=== PATIENT | female | born 1975 | race African-American/Black ===

== ENCOUNTER 2019-07-18 09:32 | Emergency (ER) | payer BC, OTHER ==
[~2019-07-18] VITALS: Ht 165.1 cm; Wt 111.4 kg
[2019-07-18 09:37] VITALS: BP 215/130
[2019-07-18] MEDS ORDERED: KETOROLAC 60 MG/2 ML VIAL IM ONE (10:05)
--- NOTE | 2019-07-18 10:17 | NUR ---
TORADOL SHOT GIVEN PER MD ORDER.
--- NOTE | 2019-07-18 12:03 | NUR ---
notified of pt's current b/p 206/115 hr 73 spo2 100% ra---no intervention required as pt has meds at home and currently asymptomaic as per
[2019-07-18 12:07] VITALS: BP 168/89
--- NOTE | 2019-07-18 12:08 | NUR ---
Patient discharged with v/s stable. Written and verbal after care instructions given and explained. Patient alert, oriented and verbalized understanding of instructions. Ambulatory with to home. All questions addressed prior to discharge. ID band removed. Patient advised to follow up with PMD. Rx of MOTRIN AND NORCO given. Patient educated on indication of medication including possible reaction and side effects. Opportunity to ask questions provided and answered.
== END 2019-07-18 12:06 | disposition home or self-care (01) ==
LOC: MED 09:32
DX: S13.4XXA Sprain of ligaments of cervical spine, initial encounter (principal); M25.511 Pain in right shoulder; M54.89 Other dorsalgia; I10 Essential (primary) hypertension; V89.2XXA Person injured in unspecified motor-vehicle accident, traffic, initial encounter; Y93.89 Activity, other specified; Y92.410 Unspecified street and highway as the place of occurrence of the external cause; Y99.8 Other external cause status
CPT/HCPCS: 81002; 81025; 96372; 99283; J1885; 99282

== ENCOUNTER 2019-12-25 12:25 | Inpatient (IN) | payer BC, OTHER ==
[~2019-12-25] VITALS: Ht 162.6 cm; Wt 120.2 kg
[2019-12-25 12:29] VITALS: BP 147/120
--- NOTE | 2019-12-25 12:55 | NUR ---
c/o recurring sob with any activity, pitting edema ble, ---states she has seen her pmd and urgent care twice ---no cxr or lab work--admits finished rx
--- NOTE | 2019-12-25 13:07 | NUR ---
influenza swab collected handed to lab
--- NOTE | 2019-12-25 13:13 | NUR ---
Dr. Brown is evaluating the patient at bedside.
[2019-12-25 13:24] LABS: BASOPHILS % (AUTO) 0.7 % (0.0-2.0); EOSINOPHILS # (AUTO) 0.1 K/uL (0-0.4); EOSINOPHILS % (AUTO) 1.8 % (0.0-4.0); HEMATOCRIT 24.4 % (36-48); HEMOGLOBIN 8.4 g/dL (12.0-16.0); LYMPHOCYTES # (AUTO) 0.7 K/uL (2.5-16.5); LYMPHOCYTES % (AUTO) 11.5 % (20.5-51.1); MEAN CORPUSCULAR HEMOGLOBIN 33 pg (27-31); MEAN CORPUSCULAR HGB CONC 34 g/dL (33-37); MEAN CORPUSCULAR VOLUME 96.5 fL (80-94); MONOCYTES # (AUTO) 0.3 K/uL (0.8-1.0); NEUTROPHILS # (AUTO) 5.2 K/uL (1.8-7.7); PLATELET COUNT (AUTO) 82 K/uL (140-450); RED BLOOD CELL COUNT(AUTO) 2.53 MIL/uL (4.20-5.40); RED CELL DISTRIBUTION WIDTH 17.4 % (11.6-13.7); WHITE BLOOD COUNT (AUTO) 6.5 K/uL (4.8-10.8)
--- NOTE | 2019-12-25 13:24 | NUR ---
BP ELEVATED AT 197/103, DR. ANDRADE MADE AWARE
[2019-12-25] MEDS ORDERED: hydrALAZINE 20 MG/ML VIAL IVP ONE (13:25)
--- NOTE | 2019-12-25 13:40 | NUR ---
US tech at bedside for exam.
[2019-12-25 13:52] LABS: ALBUMIN 2.9 g/dL (3.4-5.0); ANION GAP 18.8 (8-16); CARBON DIOXIDE 21.5 mmol/L (21-32); POTASSIUM 4.3 mmol/L (3.5-5.1); TOTAL BILIRUBIN 0.8 mg/dL (0.0-1.0)
[2019-12-25 13:56] LABS: CREATININE 10.8 mg/dL (0.6-1.3)
--- NOTE | 2019-12-25 15:06 | NUR ---
pt to ct via wc
--- NOTE | 2019-12-25 15:20 | NUR ---
PT ARRIVED BACK ON THE UNIT. ALL SAFETY MEASURES ARE IN PLACE WILL CONTINUE TO MONITOR
[2019-12-25] MEDS ORDERED: ONDANSETRON 4 MG/2 ML VIAL IVP ONE (15:25)
--- NOTE | 2019-12-25 15:25 | NUR ---
PT RETURNED FROM CT DUE TO INABILITY TO TOLERATE WHILE LAYING DOWN. PT BECAME NASUEOUS AND BEGAN TO VOMIT. WILL MEDICATE WITH ZOFRAN AND ATTEMPT CT AGAIN
[2019-12-25] MEDS ORDERED: ATOR20TA PO (15:50)
[2019-12-25] MEDS ORDERED: ALBU0.0912 IH (15:50)
[2019-12-25] MEDS ORDERED: CLON0.2T43 PO (15:50)
[2019-12-25] MEDS ORDERED: ASPI-1205 PO (15:50)
[2019-12-25] MEDS ORDERED: CETI-120 PO (15:50)
[2019-12-25] MEDS ORDERED: LABE300T5 PO (15:50)
[2019-12-25] MEDS ORDERED: FLO44 IH (15:50)
--- NOTE | 2019-12-25 16:15 | NUR ---
Patient will be admitted to care of DR. BARGER. Admited to TELEMETRY. Will go to room 106A. Belongings list completed. Report to ANNE-MARIE Karimi.
--- NOTE | 2019-12-25 16:20 | NUR ---
PT ARRIVED ON THE UNIT AT 1610 INTRODUCED MYSELF ORIENTED PT TO THE UNIT AND TO HER ROOM. REVIEWED ADMISSION QUESTIONS. PERFORMED ASSESSMENT. PT STATED SHE HAD NO OPEN WOUNDS.
[2019-12-25] MEDS ORDERED: DOCUSATE SODIUM 100 MG GELCAP PO PRN (16:40)
[2019-12-25] MEDS ORDERED: ACETAMINOPHEN 325 MG TAB PO PRN (16:40)
[2019-12-25] MEDS ORDERED: LORazepam 2 MG/ML VIAL IM/IVP PRN (16:40)
--- NOTE | 2019-12-25 16:50 | NUR ---
PT TAKEN OFF THE UNIT TO RADIOLOGY FOR SCREENING.
[2019-12-25] MEDS ORDERED: AZITHROMYCIN 500 MG in DEXTROSE 5% 250 ML IV ONE (17:10)
[2019-12-25 17:28] VITALS: BP 160/81
[2019-12-25] MEDS ORDERED: hePARIN / DEXT 5% PREMIX 250 ML IV SCH (17:35)
[2019-12-25] MEDS ORDERED: HEPARIN PER PHARMACY MC PRN (17:35)
[2019-12-25 17:47] LABS: AMYLASE 87 U/L (25-115); CHOL/HDL RATIO 2.1 (1-4.5); FREE T4 (FREE THYROXINE) 0.96 ng/dL (0.76-1.46); HDL CHOLESTEROL 45 mg/dL (40-60); LACTATE DEHYDROGENASE 519 U/L (81-234); LDL (CALC) 38 mg/dL (60-100); LIPASE 214 U/L (73-393); MAGNESIUM 1.9 mg/dL (1.8-2.4); PHOSPHORUS 7.7 mg/dL (2.5-4.9); THYROID STIMULATING HORMONE 3.65 uIU/mL (0.34-3.74); TRIGLYCERIDES 59 mg/dL (30-150)
[2019-12-25] MEDS ORDERED: ALBUTEROL SULFATE/IPRATROPIU 3 ML SOL IH PRN (18:15)
[2019-12-25 18:23] LABS: APPEARANCE,URINE HAZY (CLEAR); BILIRUBIN,URINE NEGATIVE (NEGATIVE); BLOOD, URINE 3+ (NEGATIVE); COLOR,URINE YELLOW (YELLOW); PH,URINE 5.5 (5.0-9.0); UGLUCOSE NEGATIVE (NEGATIVE)
[2019-12-25 18:24] LABS: LEUKOCYTE ESTERASE ,URINE NEGATIVE (NEGATIVE); NITRITE, URINE NEGATIVE (NEGATIVE)
[2019-12-25 18:39] LABS: RBC,URINE 80-100 /HPF (0-5); WBC,URINE 0-5 /HPF (0-5)
[2019-12-25 18:41] LABS: BARBITURATE, URINE NEGATIVE ng/ml (NEG <=200); BENZODIAZEPINE, URINE NEGATIVE ng/mL (NEG <=200); CANNABINOID, URINE NEGATIVE ng/mL (NEG <=50); COCAINE, URINE NEGATIVE ng/mL (NEG <=300); OPIATE, URINE NEGATIVE ng/mL (NEG <=2000); PHENCYCLIDINE SCREEN,URINE NEGATIVE ng/mL (NEG <=25)
--- NOTE | 2019-12-25 18:43 | NUR ---
ATTEMPTED PLACING LOZANO CATH TWICE. UNABLE TO HAVE SUCCESS PLACING LOZANO CATH. WILL HAVE TO ENDORSE TO PM RN TO HAVE HELP WHEN PLACING PT IS LARGE.
[2019-12-25] MEDS ORDERED: cefTRIAXone 1,000 MG VIAL ONE (18:48)
[2019-12-25] MEDS: FUROSEMIDE 40 MG/4 ML VIAL IVP SCH (19:05)
[2019-12-25] MEDS ORDERED: ALBUTEROL SULFATE/IPRATROPIU 3 ML SOL IH ONE (19:14)
[2019-12-25 19:18] LABS: PROTHROMBIN TIME 10.3 secs (10.8-13.4)
--- NOTE | 2019-12-25 19:30 | NUR ---
ENDORSED PT TO PM RN PT AWAKE IN BED PT APPEARS STABLE AND IN NO APPARENT DISTRESS. ALL SAFETY MEASURES ARE IN PLACE PT IS AT BEDSIDE. ENDORSED LOZANO CATH
--- NOTE | 2019-12-25 19:37 | NUR ---
RECEIVED PATIENT ON ROOM AIR, PULSE OX SAT 99%. SCHEDULED BREATHING TREATMENT ADMINISTERED. TOLERATED TX WELL WITHOUT ADVERSE SIDE EFFECTS. INCENTIVE SPIROMETER EDUCATION DONE. PT PERFORMED RETURN DEMONSTRATION WITH GOOD EFFORT. WILL CONTINUE TO ENCOURAGE EQUIPMENT USAGE. PT STATES NO COUGH OR PHLEGM PRODUCTION AT THIS TIME- UNABLE TO OBTAIN SPUTUM SAMPLE; SPUTUM CUP LEFT AT BEDSIDE, SPUTUM EXPECTORATION INSTRUCTIONS GIVEN, PT AWARE. PT MADE AWARE OF ORDERED MEDICATION FREQUENCY AND INSTRUCTED TO CALL NEEDED FOR SOB. NO ACUTE RESPIRATORY DISTRESS NOTED AT THIS TIME. WILL CONTINUE TO MONITOR.
--- NOTE | 2019-12-25 19:39 | NUR ---
RECEIVED PT FROM OSCAR RN PT MORBID OBESITY, AAOX4 USING BSC IV ON LEFT AC INFUSING WELL ROVEPHIN, , , PT HAS SOB TO LITTLE EXERTION, ON TELMETRY ST , RELTIVES AT BE SIDE INITIAL ASSESSMENT DONE
[2019-12-25] MEDS ORDERED: AZITHROMYCIN 500 MG INJ VIAL IV ONE (19:47)
[2019-12-25 20:00] VITALS: BP 187/84
[2019-12-25] MEDS: cloNIDine 0.1 MG TAB PO SCH (20:10)
[2019-12-25] MEDS: LABETALOL 100 MG TAB PO SCH (20:11)
--- NOTE | 2019-12-25 20:30 | NUR ---
DR ROSAS IS HERE AND SEE THE PT
[2019-12-25] MEDS: ONDANSETRON 4 MG/2 ML VIAL IM/IVP PRN (23:18)
[2019-12-25] MEDS: hydrALAZINE 20 MG/ML VIAL IVP PRN (23:21)
[2019-12-26] VITALS: BP 197/117
--- NOTE | 2019-12-26 | NUR ---
PT HAS BEEN MONITORING CLOSE FOR HIGH BP ON TELMETRY SR AND AFTER PAIN MEDIC GIVEN PT SLEEPS WELL
[2019-12-26] MEDS: MORPHINE SULFATE 2 MG/ML SYR IVP PRN ×2 (00:51→15:58)
--- NOTE | 2019-12-26 02:16 | NUR ---
AFTER PAIN MEDIC GIVEN PT IS SLEEPING QUIET
[2019-12-26 04:00] VITALS: BP 194/108
--- NOTE | 2019-12-26 04:00 | NUR ---
SPONGE BATH GIVEN LINEN CHANGED PT ON TELE SR MONITORING HIGH BP AND GIVING PRN MEDIC ORDER TO LOWER BP
[2019-12-26] MEDS: hydrALAZINE 20 MG/ML VIAL IVP PRN ×3 (04:35→17:51)
[2019-12-26] MEDS: ONDANSETRON 4 MG/2 ML VIAL IM/IVP PRN (06:28)
--- NOTE | 2019-12-26 06:48 | NUR ---
ON TELE SR AND MEDIC IS GIVEN ORDER FOR NAUSEAS PT WILLBE ENDORSED TO DAYSHIFT NURSE FOR CONTINUE OF CARE
[2019-12-26 06:54] LABS: ANION GAP 21.6 (8-16); CARBON DIOXIDE 16.4 mmol/L (21-32)
[2019-12-26 07:01] LABS: MAGNESIUM 2.1 mg/dL (1.8-2.4); PHOSPHORUS 8.2 mg/dL (2.5-4.9)
[2019-12-26 07:06] LABS: BASOPHILS # (AUTO) 0.1 K/uL (0.00-0.22); BASOPHILS % (AUTO) 0.7 % (0.0-2.0); EOSINOPHILS # (AUTO) 0.1 K/uL (0-0.4); EOSINOPHILS % (AUTO) 1.3 % (0.0-4.0); LYMPHOCYTES # (AUTO) 1.2 K/uL (2.5-16.5); MEAN CORPUSCULAR HEMOGLOBIN 34 pg (27-31); MEAN CORPUSCULAR HGB CONC 35 g/dL (33-37); MEAN CORPUSCULAR VOLUME 97.2 fL (80-94); MONOCYTES # (AUTO) 0.4 K/uL (0.8-1.0); MONOCYTES % (AUTO) 4.7 % (1.7-9.3); NEUTROPHILS # (AUTO) 6.4 K/uL (1.8-7.7); NEUTROPHILS % (AUTO) 78.3 % (42.2-75.2); PLATELET COUNT (AUTO) 99 K/uL (140-450); RED BLOOD CELL COUNT(AUTO) 2.67 MIL/uL (4.20-5.40); WHITE BLOOD COUNT (AUTO) 8.2 K/uL (4.8-10.8)
--- NOTE | 2019-12-26 07:30 | NUR ---
RECEIVED BEDSIDE REPORT FROM NIGHTSHIFT NURSE. PT RESTING IN BED. ABLE TO MAKE NEEDS KNOWN. RESPIRATIONS EVEN AND UNLABORED WITH NO SOB OR RESPIRATORY DISTRESS. SKIN WARM AND DRY TO TOUCH. IV SITE IN LAC 2OG IS CLEAN, DRY, AND INTACT. SAFETY MEASURES IN PLACE. WILL CONTINUE TO MONITOR.
--- NOTE | 2019-12-26 07:32 | NUR ---
RECEIVED CRITICAL RESULT FROM LAB. CREATININE IS 10.5 AND BUN IS 129. RESIDENT MADE AWARE. SAFETY MEASURES IN PLACE.
[2019-12-26 07:39] LABS: CREATININE 10.7 mg/dL (0.6-1.3)
[2019-12-26] MEDS: ALBUTEROL SULFATE/IPRATROPIU 3 ML SOL IH SCH ×3 (07:41→20:28)
[2019-12-26 08:00] VITALS: BP 197/87
--- NOTE | 2019-12-26 08:27 | NUR ---
RECEIVED CRITICAL RESULT FROM LAB. TROPONIN IS 0.223. RESIDENT MADE AWARE. SAFETY MEASURES IN PLACE.
--- NOTE | 2019-12-26 08:56 | NUR ---
PATIENT HAS BEEN SCREENED AND CATEGORIZED HIGH NUTRITION RISK. PATIENT WILL BE SEEN WITHIN 1-2 DAYS OF ADMISSION. 12/26/19-12/27/[address]
[2019-12-26] MEDS: FUROSEMIDE 40 MG/4 ML VIAL IVP SCH ×3 (09:00→17:00)
[2019-12-26] MEDS: LABETALOL 100 MG TAB PO SCH ×2 (09:02→22:18)
[2019-12-26] MEDS: cloNIDine 0.1 MG TAB PO SCH ×2 (09:03→22:19)
--- NOTE | 2019-12-26 09:03 | NUR ---
ADMINISTERED SCHED MED PRESCRIBED PER MD ORDER. PT TOLERATED WELL. MEDICATION EDUCATION PERFORMED. PT VERBALIZED UNDERSTANDING. LASIX HELD DUE TO KIDNEY SCAN TODAY. RESIDENT IS AWARE. SAFETY MEASURES IN PLACE. WILL CONTINUE TO MONITOR
[2019-12-26] MEDS: CALCIUM ACETATE 667 MG TAB PO SCH ×3 (09:04→17:12)
[2019-12-26] MEDS ORDERED: amLODIPine 5 MG TAB PO SCH (10:00)
--- NOTE | 2019-12-26 10:57 | NUR ---
DISCHARGE PLANNING: CONTACTED [facility] AT [phone], ABLE TO SPEAK TO NELIDA (ANSWERING SERVICE), TRANSFERRED ME TO DEPARTMENT. ABLE TO SPEAK TO REGINALD, SHE STATED THE CM IN CHARGE IS MARIE WARREN [id number]. GOT TRANSFERRED NO ANSWER, ANSWERED BY REGINALD AGAIN. STATING THE SINCE THE PATIENT IS [facility]/[place]ONDO THE CM IS CAITLYN [phone]. PER CM CAITLYN (OUTSIDE CM), IF PATIENT IS STABLE TO BE TRANSFERRED TO CONTRACTED FACILITY WHICH IS [facility]. SHE ALSO REQUESTED TO SEND CLINICALS TO [phone], CLINICALS SENT. WILL FOLLOW UP. Addendum: 12/26/19 at 1104 by Nicole Davila CM PER DR. JORDAN PATIENT IS NOT STABLE FOR TRANSFER YET PENDING NEPHRO'S RECOMMENDATION. Addendum: 12/26/19 at 1402 by Nicole Davila CM CONTACTED DORIE CAITLYN OF [facility] AT [phone], SHE STATED WHEN THEY RAN THE ELIGIBILITY IT SHOWED THAT THIS IS NOT THEIR PATIENT AND BELONGS TO [facility] AND THE CM IN CHARGE IS JUDITH PAVON AT [phone]. CONTACTED THE PROVIDED NUMBER, NO ANSWER. LEFT MESSAGE. Addendum: 12/26/19 at 5160 by Nicole Davila CM RECEIVED A FAX FROM DORIE WONG WITH TRACKING NUMBER [id number] AND CM IN CHARGE IS BAHMAN MOLINA AT [phone]. RALPH COORDINATOR MADE AWARE. Addendum: 12/27/19 at 1033 by Nicole Davila CM CONTACTED DORIE MOLINA OF [facility] AT [phone], IF THE PATIENT NEEDS TO BE TRANSFERRED OUT TO A CONTRACTED FACILITY ONCE STABLE. SHE STATED NO NEED TO SINCE WE ARE CONTRACTED WITH THEM AND THEIR HOSPITALIST IS DR. Gume BARGER. Addendum: 12/27/19 at 1136 by Nicole Davila RECEIVED A CALL FROM PRIMARY RN DAIN, STATING THAT DR JORGENSEN IS REQUESTING TO SET UP OUT PATIENT DIALYSIS FOR THIS PATIENT AT [facility]. CONTACTED DORIE MOLINA OF [facility], SHE STATED THEY ARE THE ONE WHO IS DELEGATED TO PROVIDE AUTH FOR OUT PATIENT DIALYSIS AND THEY ARE NOT CONTRACTED WITH [facility], ONLY WITH [facility]. DR JORGENSEN MADE AWARE AT [phone], HE STATED HE WILL CHECK WITH THEIR OFFICE AND WILL CALL ME BACK. Addendum: 12/28/19 at 1500 by Ivette Mosley ALEIDA/DORIE met with pt to follow-up in regards to outpatient dialysis; present. Pt a&o x4, able to engage in the conversation; pt's mood and affect were congruent with the situation. 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 Pt stated she's planning on filing short-term disability. Pt requesting outpatient dialysis to start between 9-11am as she would have to pickle maker her children from school and/or will only be available during this time. Sw informed patient we would try to accommodate her request however it's based on facility's availability. Pt and understood and are agreeable. KAYLAH Farrell/DORIE Ext [phone] Addendum: 12/28/19 at 1555 by Nicole Davila CM [id number]: SPOKE TO DR JORGENSEN REGARDING OUT PATIENT DIALYSIS. HE STATED HE DISCUSSED THE CASE (INSURANCE) WITH DR. COLEMAN AND WILL TAKE THE PATIENT IN FOR NOW AND WORRY ABOUT THE INSURANCE LATER. PER HIS PROGRESS NOTES PATIENT IS ACCEPTED AT [facility] [place]. CONTACTED [facility] [place] AT [phone], SPOKE TO JESSICA. HE STATED HE WILL FIND OUT. GOT TRANSFERRED TO [facility], HE STATED TO CALL IN BIT AND LOOK FOR JORDON (INTAKE). Addendum: 12/28/19 at 1557 by Nicole Davila CM CONTACTED [facility] [place], ABLE TO SPEAK WITH JORDON. SHE CONFIRMED THAT PATIENT HAS BEEN ACCEPTED AND CHAIR TIME WILL BE M-W-F AT [phone]. I INFORMED HER THAT THE PATIENT IS REQUESTING A MORNING SESSION, SHE STATED THEIR MORNING SESSION ARE PRETTY MUCH BOOKED UP. I ALSO INFORMED HER THAT THEY ARE NOT CONTRACTED WITH THE INSURANCE AND DR JORGENSEN IS AWARE OF THIS. Addendum: 12/28/19 at 1639 by Nicole Davila CM MET WITH THE PATIENT AGAIN TO DISCUSS OUT PATIENT CHAIR TIME AND IS IN AGREEMENT. PRIMARY RN AND CHARGE NURSE MADE AWARE. Addendum: 12/29/19 at 1023 by Nicole Davila CM PER CHARGE NURSE (DURING BED HUDDLE) PATIENT IS NOT ABLE TO COMPLY WITH THE CHAIR TIME DUE TO NO ONE WILL BE TAKING HER THOSE DAYS. MET WITH THE PATIENT AND HER AT THE BEDSIDE TO DISCUSS HER CONCERNS. SHE STATED PREFERABLY T-TH-SAT BETWEEN 11-2 PM. I INFORMED HER I WILL TRY TO SET IT UP THE WAY SHE WANTED IT HOWEVER I CAN NOT GUARANTEE HER REQUEST THAT IT WILL DEPEND ON THE AVAILABILITY OF THE DIALYSIS CENTER. BOTH PATIENT AND HER AGREED. Addendum: 12/29/19 at 1534 by Nicole Davila CM RECEIVED A CALL FROM BAHMAN MOLINA OF [facility] [employer] [facility], STATING THAT SHE IS TRYING TO GET A CHAIR TIME FOR THE PATIENT TO [facility] [place]. SHE PROVIDED ME THE FAX NUMBER [phone] TO SEND CLINICALS. SHE ALSO STATED THAT DR. JORGENSEN IS NOT CONTRACTED WITH THEM EITHER. DR. JORGENSEN MADE AWARE. HE STATED, THEY CAN TAKE THE PATIENT IN TEMPORARILY AND HE DISCUSSED IT WITH THE PATIENT AND PATIENT IS WILLING TO CHANGE MEDICAL GROUP IN THE FUTURE. MET WITH THE PATIENT AT THE BEDSIDE AND CONFIRMED THAT SHE DISCUSSED THIS WITH DR. JORGENSEN. Addendum: 12/29/19 at 1702 by Nicole Davila CONTACTED [facility] AT [phone] TO FOLLOW UP ON THE CHAIR TIME, ABLE TO SPEAK TO JOHANNA, SHE CONFIRMED THAT THEY HAVE RECEIVED THE FAX HOWEVER THE CASE IS NOT ASSIGNED YET AND SOMEONE WILL BE CALLING ME TO FOLLOW UP. RECEIVED A CALL FROM LIVIA FROM [facility], SHE STATED SHE IS TRYING TO GET A CHAIR TIME WITH THEIR ORIENT CLINIC. SHE STATED SHE WILL CALL ME BACK ONCE SET UP. CONTACTED DORIE RUGGIERO OF [facility] AND MADE HER AWARE THAT PATIENT NEEDS TO STAY, SINCE CHAIR TIME HAS NOT BEEN SET UP YET AND JUST MAKING SURE THAT THE STAY WILL NOT BE DENIED BEACUASE OF THAT. SHE STATED SHE WILL DISCUSS IT WITH HER DIRECTOR. RECEIVED A CALL FROM LIVIA OF [facility], STATING THAT SHE GOT THE CHAIR TIME AT [facility] FOR [facility]U AT 0500. I INFORMED HER THAT I HAVE TO DISCUSS IT WITH THE PATIENT AND WILL GIVE HER A CALL BACK. MET WITH THE PATIENT AT THE BEDSIDE TO DISCUSS CHAIR TIME AND PATIENT IS IN AGREEMENT. LIVIA OF [facility] MADE AWARE. DR. JORGENSEN AND DR. JORDAN MADE AWARE. PRIMARY RN DORIS MADE AWARE WELL. Addendum: 12/30/19 at 1451 by Nicole Davila CM LATE ENTRY: RECEIVED A FAX FROM [employer] OF HARD COPY OF THE CHAIR TIME. PATIENT MADE AWARE, ABLE TO VERBALIZE UNDERSTANDING. I ALSO INFORMED HER THAT SHE HAS TO GO TO THE CLINIC ON THURSDAY TO FILL OUT SOME PAPER WORKS AND BE ON HER APPOINTMENT 20 MINUTES EARLY, ABLE TO VERBALIZE UNDERSTANDING.
--- NOTE | 2019-12-26 11:55 | NUR ---
ADMINISTERED SCHED MED PRESCRIBED PER MD ORDER. PT TOLERATED WELL. MEDICATION EDUCATION PERFORMED. PT VERBALIZED UNDERSTANDING. SAFETY MEASURES IN PLACE. WILL CONTINUE TO MONITOR
[2019-12-26 12:00] VITALS: BP 167/84
[2019-12-26] MEDS: NIFEdipine 60 MG TABER PO SCH (12:27)
--- NOTE | 2019-12-26 13:40 | NUR ---
Health Education Assistant Note: Basic Screen: Yes High Risk DC Screen [place]: VERONIKA CLAUDIO [place] Relationship: SON Pre-Admission Living Arrangements: Lives with Other Prior ADL Independent Current Home Health Name/Tel: N/A Current DME/02 Name/Tel: N/A Current Hospice Name/Tel: N/A Current Dialysis Name/Tel: STATED SHE WILL BEGIN DIALYSIS Healthcare Decision Maker: Patient Advance Directive No Physician Orders for Life Sustaining Treatment Form No Patient/Family Have Educational Needs No Information Taught: Advance Directive Person Taught: Patient Teaching Tools: Verbal Factors Affecting Learning: None Participation Level: Refused Evaluation: Verbalizes Understanding Needs Additional Education: No Discipline: Case Mgt/Social Svcs Tentative Discharge Plan/Destination: No Needs Identified Will require assistance post discharge: No Referred to Testing Tech: No Tentative Discharge Plan Summary: Patient is a 44-year-old female admitted for acute renal failure. Patient has PMHX of asthma and HTN. Patient was admitted from home where she lives with her , children, and mother. SW met with patient at bedside to verify demographics. Patient reported no history of mental health and no history of substance abuse. Patient's tentative discharge plan is to return home. No further needs identified. Signature: DONYA Navarro Date: Dec 26, 2019 Time: 13:39
--- NOTE | 2019-12-26 13:45 | NUR ---
PT RESTING IN BED. ABLE TO MAKE NEEDS KNOWN. RESPIRATIONS EVEN AND UNLABORED WITH NO SOB OR RESPIRATORY DISTRESS. SKIN WARM AND DRY TO TOUCH. SAFETY MEASURES IN PLACE. WILL CONTINUE TO MONITOR.
--- NOTE | 2019-12-26 14:30 | NUR ---
PT SIGNED CONSENT FOR BOTH QUITON CATHETER PLACEMENT AND HD. SAFETY MEASURES IN PLACE. WILL CONTINUE TO MONITOR
--- NOTE | 2019-12-26 15:25 | NUR ---
NICOLLE CATH IS PLACED ON PT'S RIGHT CHEST. PT TOLERATED WELL. SAFETY MEASURES IN PLACE. WILL CONTINUE TO MONITOR.
--- NOTE | 2019-12-26 15:58 | NUR ---
PT CALLED AND COMPLAINED OF SEVERE PAIN. PRN PAIN MEDICATION ADMINISTERED PRESCRIBED PER MD ORDER. PT TOLERATED WELL. MEDICATION EDUCATION PERFORMED. PT VERBALIZED UNDERSTANDING. SAFETY MEASURES IN PLACE. WILL CONTINUE TO MONITOR.
[2019-12-26 16:00] VITALS: BP 183/96
--- NOTE | 2019-12-26 17:12 | NUR ---
ADMINISTERED SCHED MED PRESCRIBED PER MD ORDER. PT TOLERATED WELL. MEDICATION EDUCATION PERFORMED. PT VERBALIZED UNDERSTANDING. SAFETY MEASURES IN PLACE. WILL CONTINUE TO MONITOR
[2019-12-26] MEDS: AZITHROMYCIN 250 MG in DEXTROSE 5% 250 ML IV SCH (18:04)
--- NOTE | 2019-12-26 19:08 | NUR ---
RECIEVED PT AAOX4 , NID , SL INTACT AND PATENT , W/ NICOLLE ON THE R NECK . POC DISCUSSED AND VERBALIZE UNDERSTANDING , ON SAFETY PRECAUTION PROTOCOL- CALL LIGHT WITHIN REACH .WILL CONT. TO MONITOR.
--- NOTE | 2019-12-26 19:08 | NUR ---
ENDORSED AT BEDSIDE WITH NIGHTSHIFT NURSE. PT RESTING IN BED. ABLE TO MAKE NEEDS KNOWN. RESPIRATIONS EVEN AND UNLABORED WITH NO SOB OR RESPIRATORY DISTRESS. SKIN WARM AND DRY TO TOUCH. SAFETY MEASURES IN PLACE. PT IS STABLE
[2019-12-26 20:00] VITALS: BP 160/90
[2019-12-26] MEDS ORDERED: MORPHINE SULFATE 2 MG/ML SYR IVP PRN (20:00)
--- NOTE | 2019-12-26 20:33 | NUR ---
FOR HD TONIGHT AND JANESSA . ORDERED BY AREN - INFORM HEMODIALYSIS NURSE.
--- NOTE | 2019-12-26 23:30 | NUR ---
HD BEGINS - WILL CONT. TO MONITOR , CALL LIGHT WITHIN REACH.
[2019-12-27] VITALS (7 sets, daily range): BP systolic 127–155; BP diastolic 65–90
[2019-12-27] MEDS: HYDROcodone/APAP 5/325 MG 1 TAB TAB PO PRN ×3 (02:12→17:54)
--- NOTE | 2019-12-27 02:45 | NUR ---
RECEIVED PATIENT FROM PILOT POINT FOR CONTINUITY OF CARE, PT IS RESTING QUIETLY.
--- NOTE | 2019-12-27 02:45 | NUR ---
ENDORSED TO CHARGE NURSE FOR CONT. OF CARE - PT - STABLE - HD DONE - TOLERATED WELL.
--- NOTE | 2019-12-27 04:00 | NUR ---
AWAKE, V/S TAKEN ,NO COMPLAINTS.
[2019-12-27] MEDS: ALBUTEROL SULFATE/IPRATROPIU 3 ML SOL IH SCH ×3 (06:21→20:03)
--- NOTE | 2019-12-27 06:27 | NUR ---
SLEEPING QUIETLY, NO SIGN OF DISTRESS.
--- NOTE | 2019-12-27 07:25 | NUR ---
RECEIVED BEDSIDE REPORT FROM NIGHTSHIFT NURSE. PT RESTING IN BED. ABLE TO MAKE NEEDS KNOWN. RESPIRATIONS EVEN AND UNLABORED WITH NO SOB OR RESPIRATORY DISTRESS. SKIN WARM AND DRY TO TOUCH. SAFETY MEASURES IN PLACE. WILL CONTINUE TO MONITOR.
[2019-12-27 07:35] LABS: BASOPHILS % (AUTO) 0.3 % (0.0-2.0); EOSINOPHILS # (AUTO) 0.1 K/uL (0-0.4); HEMOGLOBIN 8.4 g/dL (12.0-16.0); LYMPHOCYTES # (AUTO) 0.7 K/uL (2.5-16.5); LYMPHOCYTES % (AUTO) 7.2 % (20.5-51.1); MEAN CORPUSCULAR HEMOGLOBIN 34 pg (27-31); MEAN CORPUSCULAR HGB CONC 35 g/dL (33-37); MEAN CORPUSCULAR VOLUME 96.8 fL (80-94); MONOCYTES # (AUTO) 0.6 K/uL (0.8-1.0); MONOCYTES % (AUTO) 6.1 % (1.7-9.3); NEUTROPHILS # (AUTO) 8.2 K/uL (1.8-7.7); NEUTROPHILS % (AUTO) 85.4 % (42.2-75.2); PLATELET COUNT (AUTO) 94 K/uL (140-450); RED BLOOD CELL COUNT(AUTO) 2.48 MIL/uL (4.20-5.40); RED CELL DISTRIBUTION WIDTH 17.8 % (11.6-13.7); WHITE BLOOD COUNT (AUTO) 9.7 K/uL (4.8-10.8)
[2019-12-27 08:03] LABS: MAGNESIUM 1.9 mg/dL (1.8-2.4); PHOSPHORUS 6.7 mg/dL (2.5-4.9)
--- NOTE | 2019-12-27 08:36 | NUR ---
RECEIVED CRITICAL LAB FROM CHEMISTRY. TROPONIN IS 0.367. RESIDENT IS AWARE. SAFETY MEASURES IN PLACE. WILL CONTINUE TO MONITOR
[2019-12-27] MEDS: LABETALOL 100 MG TAB PO SCH ×2 (09:15→22:30)
[2019-12-27] MEDS: ASCORBIC ACID 500 MG TAB PO SCH (09:16)
[2019-12-27] MEDS: NIFEdipine 60 MG TABER PO SCH (09:17)
[2019-12-27] MEDS: cloNIDine 0.1 MG TAB PO SCH ×2 (09:17→22:29)
[2019-12-27] MEDS: FUROSEMIDE 40 MG/4 ML VIAL IVP SCH ×2 (09:18→17:25)
[2019-12-27] MEDS: FERROUS SULFATE 325 MG TABEC PO SCH (09:20)
[2019-12-27] MEDS: CALCIUM ACETATE 667 MG TAB PO SCH ×3 (09:21→17:26)
--- NOTE | 2019-12-27 09:21 | NUR ---
ADMINISTERED SCHED MED PRESCRIBED PER MD ORDER. PT TOLERATED WELL. MEDICATION EDUCATION PERFORMED. PT VERBALIZED UNDERSTANDING. SAFETY MEASURES IN PLACE. WILL CONTINUE TO MONITOR.
[2019-12-27 09:38] LABS: ANION GAP 17.9 (8-16); POTASSIUM 3.9 mmol/L (3.5-5.1)
--- NOTE | 2019-12-27 10:21 | NUR ---
RECIEVED CRITICAL LAB FROM CHEMISTRY. BUN IS 97 AND CREATININE IS 8.4. RESIDENT NIKKI IS AWARE.
[2019-12-27 10:26] LABS: CREATININE 8.4 mg/dL (0.6-1.3)
--- NOTE | 2019-12-27 11:17 | NUR ---
CALLED RIVETING MACHINE OPERATOR QUAN TO TELL HER THAT DR. JORGENSEN WANTS TO FIND A DIALYSIS CENTER FOR THE PT. SAFETY MEASURES IN PLACE. WILL CONTINUE TO MONITOR.
--- NOTE | 2019-12-27 12:02 | NUR ---
PT CALLED AND COMPLAINED OF BACK PAIN WITH A PAIN SCALE OF 6. PRN PAIN MEDICATION ADMINISTERED PRESCRIBED PER MD ORDER. SAFETY MEASURES IN PLACE. WILL CONTINUE TO MONITOR.
--- NOTE | 2019-12-27 13:31 | NUR ---
PT REFUSED TX WANTS TO SEEP NO SIGNS OF DISTRESS NOTED AT THIS TIME
--- NOTE | 2019-12-27 14:07 | NUR ---
DIALYSIS NURSE IS HERE. REPORT GIVEN. PT WILL START DIALYSIS. SAFETY MEASURES IN PLACE. WILL CONTINUE TO MONITOR.
--- NOTE | 2019-12-27 14:55 | NUR ---
12/27/19 RD INITIAL ASSESSMENT COMPLETED PLEASE REFER TO NUTRITION ASSESSMENT UNDER CARE ACTIVITY FOR ESTIMATED NUTRITIONAL NEEDS. 1. CONTINUE RENAL DIET TOLERATED 2. RECOMMEND 90 GM PROTEIN IN DIET 3. RD PROVIDED RENAL NUTRITION THERAPY EDUCATION. PATIENT ACCEPTED 4. RD TO FOLLOW-UP 3-5 DAYS, MODERATE RISK IRAM VIZCAINO RD
[2019-12-27 16:09] LABS: ANTI DOUBLE STRANDED DNA AB 1 IU/mL (0-9)
--- NOTE | 2019-12-27 16:30 | NUR ---
DIALYSIS NURSE IS FINISHED AND REMOVED 2L. SAFETY MEASURES IN PLACE. WILL CONTINUE TO MONITOR
--- NOTE | 2019-12-27 17:54 | NUR ---
PT CALLED AND COMPLAINED OF 6 PAIN. PRN PAIN MEDICATION ADMINISTERED PRESCRIBED PER MD ORDER. PT TOLERATED WELL. SAFETY MEASURES IN PLACE. WILL CONTINUE TO MONITOR
[2019-12-27] MEDS: AZITHROMYCIN 250 MG in DEXTROSE 5% 250 ML IV SCH (18:57)
--- NOTE | 2019-12-27 19:10 | NUR ---
ENDORSED TO NIGHTSHIFT NURSE AT BEDSIDE. PT RESTING IN BED. ABLE TO MAKE NEEDS KNOWN. RESPIRATIONS EVEN AND UNLABORED WITH NO SOB OR RESPIRATORY DISTRESS. SKIN WARM AND DRY TO TOUCH. SAFETY MEASURES IN PLACE. PT IS STABLE
--- NOTE | 2019-12-27 20:15 | NUR ---
RECEIVED PATIENT ON ROOM AIR, PULSE OX SAT 99%. SCHEDULED BREATHING TREATMENT ADMINISTERED. TOLERATED TX WELL WITHOUT ADVERSE SIDE EFFECTS. PT MADE AWARE OF ORDERED MEDICATION FREQUENCY AND INSTRUCTED TO CALL NEEDED FOR SOB. INCENTIVE SPIROMETER PERFORMED WITH FAIR EFFORT, ENCOURAGED PATIENT TO CONTINUE USE OF EQUIPMENT. PT DOES NOT PRESENT WITH PRODUCTIVE COUGH AND STATES SHE HAS NO SPUTUM FOR SAMPLE. SPECIMEN CUP REMAINS AT BEDSIDE. NO ACUTE RESPIRATORY DISTRESS NOTED AT THIS TIME. WILL CONTINUE TO MONITOR.
--- NOTE | 2019-12-27 20:16 | NUR ---
RECEIVED PATIENT FROM AM SHIFT NURSE, TELE PT ON ROOM AIR, A, AO O X 4 , PT DENIES PAIN, AMBULATORY W/ LEFT AC IVF NOT WORKING ANYMORE, PATIENT'S LEFT ARM SWOLLEN. WILL TRY TO START A LINE LATER. PT HAS R MADHAV [place]VERDE CATH, AND PER PREVIOUS ENDORSEMENT DUE FOR AN HD TOMORROW. ALSO FOR A PLACEMENT OF A TUNNELED HD PERMACATH TOMORROW. PLACED CALL LIGHT WITHIN REACH. WILL MONITOR
--- NOTE | 2019-12-27 23:30 | NUR ---
PT'S NEW IV STARTED AFTER 3 ATTEMPTS. PLACED ON THE RIGHT FA G 20, PATENT, PT TOLERATED PROCEDURE
[2019-12-28] MEDS: ONDANSETRON 4 MG/2 ML VIAL IM/IVP PRN (00:28)
--- NOTE | 2019-12-28 00:28 | NUR ---
PT VOMITED 1X; GIVEN VOMITING BAG. PT SAID THAT PT TINKS THAT SHE WAS NOT ABLE TO DIGEST THE LABETOLOL GIVEN (ORANGE PILL). LABETALOL IS HER MAINTENANCE MEDICATION BUT WHITE PILL. WILL MONITOR. ADMINISTERED ZOFRAN
--- NOTE | 2019-12-28 03:30 | NUR ---
PT'S BP WENT UP TO 188/91; 98.2 F; 95%; 92; 20, GIVEN APRESOLINE PRN FOR SBP GREATER THAN 160
[2019-12-28] MEDS: hydrALAZINE 20 MG/ML VIAL IVP PRN (03:33)
[2019-12-28] MEDS: HYDROcodone/APAP 5/325 MG 1 TAB TAB PO PRN ×2 (03:38→22:46)
[2019-12-28 04:33] VITALS: BP 121/62
--- NOTE | 2019-12-28 04:33 | NUR ---
RECHECKED BP 121/62, 90 HR
--- NOTE | 2019-12-28 07:01 | NUR ---
PT A, A O X 4, AMBULATORY, PT FOR HD ( 2ND TIME) AND TUNNELED HD PERMACATHETER PLACEMENT, W/ CONSENT SIGNED Addendum: 12/28/19 at 0753 by Amanda Montemayor RN 3RD TIME
[2019-12-28 07:16] LABS: HEPATITIS A ANTIBODY IGM Negative (Negative); HEPATITIS B CORE AB TOTAL Negative (Negative); HEPATITIS B SURFACE ANTIBODY Non Reactive (.); HEPATITIS B SURFACE ANTIGEN Negative (Negative)
--- NOTE | 2019-12-28 07:25 | NUR ---
SHIFT REPORT RECEIVED FROM CONFIGURATION DEVELOPER NURSE. PT IS IN SLEEPING. NO DISTRESS NOTED. WILL CONTINUE TO MONITOR. CALL LIGHT IN REACH.
[2019-12-28 07:47] LABS: BASOPHILS # (AUTO) 0.1 K/uL (0.00-0.22); BASOPHILS % (AUTO) 0.8 % (0.0-2.0); EOSINOPHILS # (AUTO) 0.2 K/uL (0-0.4); EOSINOPHILS % (AUTO) 2.3 % (0.0-4.0); HEMATOCRIT 23.1 % (36-48); HEMOGLOBIN 8.1 g/dL (12.0-16.0); LYMPHOCYTES # (AUTO) 0.9 K/uL (2.5-16.5); LYMPHOCYTES % (AUTO) 14.1 % (20.5-51.1); MEAN CORPUSCULAR HEMOGLOBIN 34 pg (27-31); MEAN CORPUSCULAR HGB CONC 35 g/dL (33-37); MEAN CORPUSCULAR VOLUME 96.9 fL (80-94); MONOCYTES # (AUTO) 0.4 K/uL (0.8-1.0); MONOCYTES % (AUTO) 6.6 % (1.7-9.3); NEUTROPHILS # (AUTO) 5.1 K/uL (1.8-7.7); NEUTROPHILS % (AUTO) 76.2 % (42.2-75.2); PLATELET COUNT (AUTO) 105 K/uL (140-450); RED BLOOD CELL COUNT(AUTO) 2.38 MIL/uL (4.20-5.40); RED CELL DISTRIBUTION WIDTH 17.8 % (11.6-13.7); WHITE BLOOD COUNT (AUTO) 6.7 K/uL (4.8-10.8)
[2019-12-28] MEDS: ALBUTEROL SULFATE/IPRATROPIU 3 ML SOL IH SCH ×3 (07:50→19:30)
--- NOTE | 2019-12-28 07:50 | NUR ---
EDUCATION PROVIDED TO PATIENT ON OBTAINMENT OF SPUTUM CULTURE SAMPLE SPECIMEN CUP PLACE ON PATIENT TABLE
[2019-12-28 08:00] VITALS: BP 142/71
[2019-12-28 08:02] LABS: MAGNESIUM 1.7 mg/dL (1.8-2.4)
[2019-12-28] MEDS: FUROSEMIDE 40 MG/4 ML VIAL IVP SCH ×2 (08:34→17:57)
[2019-12-28] MEDS: CALCIUM ACETATE 667 MG TAB PO SCH ×3 (08:34→17:58)
[2019-12-28] MEDS: FERROUS SULFATE 325 MG TABEC PO SCH (08:35)
[2019-12-28] MEDS: ASCORBIC ACID 500 MG TAB PO SCH (08:35)
[2019-12-28] MEDS: cloNIDine 0.1 MG TAB PO SCH ×2 (08:46→21:20)
[2019-12-28] MEDS: NIFEdipine 60 MG TABER PO SCH (09:33)
[2019-12-28] MEDS: LABETALOL 100 MG TAB PO SCH ×2 (09:33→21:21)
[2019-12-28 09:40] LABS: CARBON DIOXIDE 27.3 mmol/L (21-32); POTASSIUM 4.3 mmol/L (3.5-5.1)
[2019-12-28 09:44] LABS: CREATININE 6.7 mg/dL (0.6-1.3)
--- NOTE | 2019-12-28 10:57 | NUR ---
PT IS IN RESTING IN BED. PT IS ALERT AND AWAKE AND RESPONSIVE. PT WAS SEEN AMBULATING TO RESTROOM. NO DISTRESS NOTED. NO COMPLAINS OF PAIN . WILL CONTINUE TO MONITOR. CALL LIGHT IN REACH.
[2019-12-28 12:00] VITALS: BP 143/75
[2019-12-28 12:22] LABS: FERRITIN 91 ng/mL (15-150); FOLIC ACID > 20.00 ng/mL (>3.0)
--- NOTE | 2019-12-28 13:21 | NUR ---
PT IS IN BED ALERT AND AWAKE AND RESPONSIVE. NO COMPLAINS OF PAIN. FAMILY BE BEDSIDE. WILL CONTINUE TO MONITOR. CALL LIGHT IN REACH.
[2019-12-28 13:32] LABS: TRANSFERRIN 192 mg/dL (200 - 370)
[2019-12-28 16:00] VITALS: BP 160/74
[2019-12-28 16:12] LABS: ANTI-NUCLEAR ANTIBODY TITER Negative (.)
--- NOTE | 2019-12-28 16:48 | NUR ---
REPORT GIVEN TO ANNE-MARIE ARMSTRONG. PT IS ON DIALYSIS NOW. PT IS AWAKE AND RESPONSIVE. NO DISTRESS NOTED. DIALYSIS NURSE BY BEDSIDE. CALL LIGHT IN REACH.
--- NOTE | 2019-12-28 16:48 | NUR ---
RECEIVED REPORT FROM RN - BEDSIDE SBAR - CARE ENDORSED TO ME- SAFETY PRECAUTIONS IN PLACE- WILL CONTINUE TO MONITOR REPORT AND RECORD
--- NOTE | 2019-12-28 18:29 | NUR ---
PATIENT RESTING IN ROOM- FINISHED WITH DIALYSIS -4L REMOVED- NO COMPLAINTS OR CONCERNS- SAFETY PRECAUTIONS IN PLACE-- SR ON TELE - WILL CONTINUE TO MONITOR REPORT AND RECORD
[2019-12-28] MEDS: AZITHROMYCIN 250 MG in DEXTROSE 5% 250 ML IV SCH (18:51)
--- NOTE | 2019-12-28 19:17 | NUR ---
RECEIVED REPORT FROM NATHANIEL RN DAYSHIFT NURSE AT BEDSIDE FOR CONTINUITY OF CARE, PT IN STABLE CONDITION.
--- NOTE | 2019-12-28 20:30 | NUR ---
PT AOX4 AMBULATORY, IV SALINE LOCKED IV FLUSHED PATENT SITE INTACT AND ASYMPTOMATIC. PT HAS NO C/O VOICED, DIALYSIS CATHETER IN PLACE NO S/S OF BLEEDING. V/S FOLLOWS: T 98.1 P 99 R 20 B/P 167/84 02 95% ON ROOM AIR. ALL UNIVERSAL FALLS PRECAUTIONS IN PLACE.
[2019-12-28 21:00] VITALS: BP 167/84
--- NOTE | 2019-12-28 21:15 | NUR ---
PT GIVEN ORDERED MEDS OF CATAPRES AND TRANDATE, EDUCATION REGARDING MEDICATION AND HTN PROVIDED AT BEDSIDE, PT DECLINED TO TAKE PRN HYDRALAZINE BECAUSE SHE SAID IF HER B/P DROPS TOO MUCH TOO QUICK IT MAKES HER FEEL SICK. PRN HYDRALAZINE HELD PER PT REQUEST. WILL REEVALUATE B/P LATER.
--- NOTE | 2019-12-28 22:50 | NUR ---
PT C/O OF MODERATE 5/10 LOWER BACK PAIN, PT GIVEN PRN NORCO. B/P REEVALUATION 142/71, HR 96. SURGEON PERFORMING TUNNEL CATH PLACEMENT TOMORROW CALLED TO PLACE PT ON NPO AFTER MIDNIGHT STATUS, PT MADE AWARE.
[2019-12-29] VITALS: BP 133/67
--- NOTE | 2019-12-29 | NUR ---
PT IN BED SLEEPING NO S/S OF PAIN OR DISTRESS NOTED V/S FOLLOWS: T 98.5 P 101 R 20 B/P 133/67 02 95 A% ON ROOM AIR.ALL UNIVERSAL PRECAUTIONS IN PLACE.
[2019-12-29 04:00] VITALS: BP 155/88
--- NOTE | 2019-12-29 04:30 | NUR ---
PT IN BED SITTING UP NO C/O VOICED LAB DRAWS DONE AT BEDSIDE V/S FOLLOWS: T 98.6 P 90 R 20 B/P 155/88 02 98% ON ROOM AIR.
[2019-12-29 07:01] LABS: BASOPHILS # (AUTO) 0.1 K/uL (0.00-0.22); BASOPHILS % (AUTO) 0.9 % (0.0-2.0); EOSINOPHILS # (AUTO) 0.2 K/uL (0-0.4); EOSINOPHILS % (AUTO) 4.1 % (0.0-4.0); HEMATOCRIT 23.3 % (36-48); HEMOGLOBIN 7.9 g/dL (12.0-16.0); LYMPHOCYTES # (AUTO) 1.1 K/uL (2.5-16.5); LYMPHOCYTES % (AUTO) 18.8 % (20.5-51.1); MEAN CORPUSCULAR HEMOGLOBIN 34 pg (27-31); MEAN CORPUSCULAR HGB CONC 34 g/dL (33-37); MEAN CORPUSCULAR VOLUME 98.2 fL (80-94); MONOCYTES # (AUTO) 0.5 K/uL (0.8-1.0); MONOCYTES % (AUTO) 7.8 % (1.7-9.3); NEUTROPHILS # (AUTO) 4.1 K/uL (1.8-7.7); NEUTROPHILS % (AUTO) 68.4 % (42.2-75.2); PLATELET COUNT (AUTO) 114 K/uL (140-450); RED BLOOD CELL COUNT(AUTO) 2.37 MIL/uL (4.20-5.40); RED CELL DISTRIBUTION WIDTH 17.1 % (11.6-13.7)
[2019-12-29 07:21] LABS: ANION GAP 9.1 (8-16); CARBON DIOXIDE 30.7 mmol/L (21-32); POTASSIUM 3.8 mmol/L (3.5-5.1)
--- NOTE | 2019-12-29 07:25 | NUR ---
RECEIVED PT FROM TRUCK DRIVER INSTRUCTOR NURSE, DASHAWN, PT IS AWAKE AND SEATED ON THE BED, WITH A RT NICOLLE CATHETER IN PLACE ON THE RT JUGULAR ASPECT, IV LINE ON THE LEFT FA G. 20 ON SALINE LOCK,INTACT, PT DENIES PAIN AND NO SOB NOTED, WILL CONTINUE TO MONITOR PT.
[2019-12-29 07:30] LABS: MAGNESIUM 1.6 mg/dL (1.8-2.4); PHOSPHORUS 5.4 mg/dL (2.5-4.9)
[2019-12-29 08:00] VITALS: BP 156/82
[2019-12-29 08:14] LABS: CREATININE 5.6 mg/dL (0.6-1.3)
[2019-12-29] MEDS: cloNIDine 0.1 MG TAB PO SCH (09:00)
[2019-12-29] MEDS: LABETALOL 100 MG TAB PO SCH (09:00)
[2019-12-29] MEDS: ASCORBIC ACID 500 MG TAB PO SCH (09:01)
[2019-12-29] MEDS: FERROUS SULFATE 325 MG TABEC PO SCH (09:02)
[2019-12-29] MEDS: NIFEdipine 60 MG TABER PO SCH (09:02)
[2019-12-29] MEDS: FUROSEMIDE 40 MG/4 ML VIAL IVP SCH ×2 (09:03→16:43)
[2019-12-29] MEDS: ALBUTEROL SULFATE/IPRATROPIU 3 ML SOL IH SCH ×3 (09:05→19:23)
--- NOTE | 2019-12-29 09:07 | NUR ---
SCHEDULED AM MEDICATIONS WERE GIVEN TO PT, NIFEDIPINE ORAL AND LASIX IV PUSH WERE GIVEN PER DR. WEAVER'S ORDER, BP IS 161/87, PULSE IS 91,, TOLERATED AND WILL CONTINUE TO BE MONITORED.
[2019-12-29] MEDS: CALCIUM ACETATE 667 MG TAB PO SCH ×3 (09:09→16:33)
--- NOTE | 2019-12-29 09:10 | NUR ---
PT IS HAVING A BREATHING TREATMENT NOW, RT ON THE BEDSIDE, PT TOLERATING MEDICATION.
[2019-12-29] MEDS: ONDANSETRON 4 MG/2 ML VIAL IM/IVP PRN (09:39)
--- NOTE | 2019-12-29 09:39 | NUR ---
PT C/O OF NAUSEA AND VOMITED, MEDICATION WAS GIVEN IV PUSH, WILL MONITOR PT.
[2019-12-29] MEDS ORDERED: EPOETIN ALFA 10,000 UNITS/ML VIAL IV SCH (10:10)
--- NOTE | 2019-12-29 10:40 | NUR ---
VERIFIED WITH DR. WEAVER IF PT WILL BE GIVEN THE SCHEDULED EPOETIN IN PT'S EMAR AND MADE A VERBAL ORDER TO GIVEN EPOETIN [id number] UNITS TO PT IV PUSH.
--- NOTE | 2019-12-29 10:55 | NUR ---
EPOGEN [id number] ADMINISTERED IV PUSH ORDERED.
[2019-12-29] MEDS ORDERED: MAGNESIUM OXIDE 400 MG TAB PO SCH (11:07)
--- NOTE | 2019-12-29 11:11 | NUR ---
SCHEDULED CALCIUM ACETATE AND MAGNESIUM OXIDE ORAL TABLETS WERE GIVEN TO PT NOW FOR MG LEVEL OF 1.6, TOLERATED AND WILL MONITOR PT.
--- NOTE | 2019-12-29 11:55 | NUR ---
PT IS OFF THE UNIT, TAKEN TO OR FOR TUNNEL CATH PLACEMENT.
[2019-12-29 12:00] VITALS: BP 165/95
[2019-12-29] MEDS ORDERED: hydrALAZINE 20 MG/ML VIAL IVP SCH (12:06)
[2019-12-29] MEDS ORDERED: LIDOCAINE 1% 500 MG/50 ML VIAL ONE (12:15)
[2019-12-29] MEDS ORDERED: BUPIVACAINE-MPF/EPI 0.5% 30 ML VIAL INJ ONE (12:15)
[2019-12-29] MEDS ORDERED: LABETALOL 100 MG/20 ML VIAL ONE (12:17)
[2019-12-29] MEDS ORDERED: MIDAZOLAM 2 MG/2 ML VIAL ONE (12:17)
[2019-12-29] MEDS ORDERED: fentaNYL 0.05 MG/ML VIAL ONE (12:17)
[2019-12-29] MEDS ORDERED: hydrALAZINE 20 MG/ML VIAL ONE (12:17)
[2019-12-29] MEDS ORDERED: ceFAZolin 1,000 MG VIAL ONE (12:18)
--- NOTE | 2019-12-29 13:28 | NUR ---
PT OFF UNIT AT THIS TIME. NO TX GIVEN
[2019-12-29] MEDS ORDERED: HYDROmorphone PFS 2 MG/ML SYR ONE (13:37)
[2019-12-29] MEDS ORDERED: HYDROmorphone 1 MG/ML AMP IVP PRN (13:40)
[2019-12-29] MEDS ORDERED: NIFE60TA39 PO (13:52)
[2019-12-29 14:00] VITALS: BP_SYST 135
[2019-12-29] MEDS ORDERED: NIFE60TE5 PO (14:00)
--- NOTE | 2019-12-29 14:00 | NUR ---
BACK TO UNIT FROM OR. IN STABLE CONDITION. VS BP 135/65 T 97.4 P 92 R 16
--- NOTE | 2019-12-29 14:35 | NUR ---
DIALYSIS IS STARTED TO PT NOW.
[2019-12-29 15:53] VITALS: BP_SYST 165
--- NOTE | 2019-12-29 17:00 | NUR ---
DIALYSIS IS FINISHED NOW WITH 1 LITER OUTPUT.
--- NOTE | 2019-12-29 17:37 | NUR ---
PT WAS GIVEN ROCEPHIN IVPB NOW,
[2019-12-29] MEDS ORDERED: AZITHROMYCIN 250 MG TAB PO SCH (18:00)
--- NOTE | 2019-12-29 18:02 | NUR ---
PT WAS GIVEN ORAL ZITHROMAX NOW.
--- NOTE | 2019-12-29 18:50 | NUR ---
DISCHARGED PT TO HOME VIA WHEELCHAIR WITH FAMILY, DISCHARGED TEACHINGS AND INSTRUCTIONS GIVEN TO PT AND VERBALIZED UNDERSTANDING, IV LINE AND ARM BAND REMOVED, PT IS STABLE AT THIS TIME.
== END 2019-12-29 18:50 | disposition home or self-care (01) | DRG 673 ==
LOC: MED 12:25 → MTU 15:46
PROVIDERS: ADMIT General Practice; ATTEND General Practice
PROC: B548ZZA Ultrasonography of Superior Vena Cava, Guidance (ICD-10-PCS; 2019-12-26)
PROC: 02HV33Z Insertion of Infusion Device into Superior Vena Cava, Percutaneous Approach (ICD-10-PCS; 2019-12-26)
PROC: 5A1D70Z Performance of Urinary Filtration, Intermittent, Less than 6 Hours Per Day (ICD-10-PCS; 2019-12-26)
PROC: 5A1D70Z Performance of Urinary Filtration, Intermittent, Less than 6 Hours Per Day (ICD-10-PCS; principal; 2019-12-27)
PROC: 5A1D70Z Performance of Urinary Filtration, Intermittent, Less than 6 Hours Per Day (ICD-10-PCS; 2019-12-28)
PROC: 0JH63XZ Insertion of Tunneled Vascular Access Device into Chest Subcutaneous Tissue and Fascia, Percutaneous Approach (ICD-10-PCS; 2019-12-29)
PROC: 02HV33Z Insertion of Infusion Device into Superior Vena Cava, Percutaneous Approach (ICD-10-PCS; 2019-12-29)
PROC: B5181ZA Fluoroscopy of Superior Vena Cava using Low Osmolar Contrast, Guidance (ICD-10-PCS; 2019-12-29)
PROC: 02PYX3Z Removal of Infusion Device from Great Vessel, External Approach (ICD-10-PCS; 2019-12-29)
DX: N17.0 Acute kidney failure with tubular necrosis (principal); I21.A1 Myocardial infarction type 2; I50.43 Acute on chronic combined systolic (congestive) and diastolic (congestive) heart failure; J96.01 Acute respiratory failure with hypoxia; J18.9 Pneumonia, unspecified organism; I13.2 Hypertensive heart and chronic kidney disease with heart failure and with stage 5 chronic kidney disease, or end stage renal disease; E44.0 Moderate protein-calorie malnutrition; Z68.42 Body mass index [BMI] 45.0-49.9, adult; I16.1 Hypertensive emergency; N18.5 Chronic kidney disease, stage 5; D63.8 Anemia in other chronic diseases classified elsewhere; I25.10 Atherosclerotic heart disease of native coronary artery without angina pectoris; J45.909 Unspecified asthma, uncomplicated; E66.01 Morbid (severe) obesity due to excess calories; D69.6 Thrombocytopenia, unspecified; E83.51 Hypocalcemia; E83.39 Other disorders of phosphorus metabolism; D50.9 Iron deficiency anemia, unspecified; Z79.82 Long term (current) use of aspirin; Z79.899 Other long term (current) drug therapy; Z82.3 Family history of stroke; Z82.49 Family history of ischemic heart disease and other diseases of the circulatory system
CPT/HCPCS: 36415; 36600; 70450; 71045; 71046; 71250; 76770; 80048; 80053; 80305; 81001; 82140; 82150; 82550; 82553; 82607; 82728; 82746; 82803; 83010; 83036; 83540; 83605; 83615; 83690; 83735; 83880; 84100; 84439; 84443; 84484; 85025; 85045; 85379; 85610; 85730; 86038; 86704; 86706; 86708; 86709; 86803; 87070; 87081; 87205; 87340; 90935; 93005; 93970; 94640; 96374; 96375; 99291; C1750; C1751; G0482; J0360; J0456; J0690; J0696; J0885; J1170; J1642; J1644; J1940; J2001; J2250; J2270; J2405; J3010; J3490; J7030; J7060; Q0092

== ENCOUNTER 2019-12-30 21:36 | Emergency (ER) | payer BC, OTHER ==
[~2019-12-30] VITALS: Ht 162.6 cm; Wt 119.3 kg
[~2019-12-30 21:36] MED LIST: ALBU0.0912 IH; ASPI-1205 PO; ATOR20TA PO; CETI-120 PO; CLON0.2T43 PO; FLO44 IH; LABE300T5 PO; NIFE60TE5 PO
[2019-12-30 21:45] VITALS: BP 160/90
--- NOTE | 2019-12-30 21:48 | NUR ---
TO LOBBY A/W BED AMBULATORY
--- NOTE | 2019-12-30 22:42 | NUR ---
PT TAKEN TO ER BED 09
--- NOTE | 2019-12-30 22:50 | NUR ---
BIB SELF REPORTS BLEEDING AND PAIN AND INSERTION SITE OF DIALYSIS CATH IN RIGHT UPPER CHEST. PATIENT STATES IT WAS PLACED YESTERDAY AT 1230 IN THE AFTERNOON. STATES TODAY IT STARTED BLEEDING AND SHE HAD PAIN. CLOTTED BLOOD SEEN UNDER DRESSING, DOES NOT APPEAR TO BE ACTIVELY BLEEDING. STACEY MADE AWARE.
--- NOTE | 2019-12-30 23:00 | NUR ---
ERMD AT BEDSIDE. ORDERED FOR DRESSING CHANGE WITH PRESSURE DRESSING.
--- NOTE | 2019-12-30 23:15 | NUR ---
PATIENT CVC DRESSING CHANGE USING STERILE TECHNIQUE. MINIMAL BLEEDING NOTED FROM INSERTION SITE. PRESSURE DRESSING IN PLACE. PATIENT TOLERATED WELL.
--- NOTE | 2019-12-30 23:21 | NUR ---
DR CASTANEDA EDUCATED AND DISCHARGED PATIENT. PATIENT AMB WITH STEADY GAIT.
[2019-12-30 23:22] VITALS: BP 160/90
== END 2019-12-30 23:21 | disposition home or self-care (01) ==
LOC: MED 21:36
DX: T82.838A Hemorrhage due to vascular prosthetic devices, implants and grafts, initial encounter (principal); J45.909 Unspecified asthma, uncomplicated; I12.9 Hypertensive chronic kidney disease with stage 1 through stage 4 chronic kidney disease, or unspecified chronic kidney disease; Z79.899 Other long term (current) drug therapy; Z79.82 Long term (current) use of aspirin
CPT/HCPCS: 99281

== ENCOUNTER 2019-12-31 03:04 | Emergency (ER) | payer BC, OTHER ==
[~2019-12-31] VITALS: Ht 162.6 cm; Wt 72.6 kg
[2019-12-31 03:10] VITALS: BP 162/95
--- NOTE | 2019-12-31 03:10 | NUR ---
TO BED # 08 AMBULATORY
--- NOTE | 2019-12-31 04:06 | NUR ---
44 YO FEMALE CO BLEEDING FROM HER SHUNT. SHUNT WAS JUST PLACED ON THURSDAY. NO N/V. STERILE TECHINQUE USED TO REMOVE OLD DRESSING AND APPLY NEW PRESSURE DRESSING TO CONTROL THE BLEEDING.
[2019-12-31] MEDS ORDERED: LIDOCAINE/EPI 1% 1:100000 20 ML VIAL INJ ONE (04:46)
--- NOTE | 2019-12-31 04:58 | NUR ---
ERMD AT BEDSIDE TO REPLACE STITCHES ON DIALYSIS NICOLLE CATH.
[2019-12-31 05:49] VITALS: BP 162/95
--- NOTE | 2019-12-31 05:50 | NUR ---
Patient discharged with v/s stable. Written and verbal after care instructions given and explained. Patient verbalized understanding. Ambulatory with steady gait. All questions addressed prior to discharge. Advised to follow up with PMD.
== END 2019-12-31 05:50 | disposition home or self-care (01) ==
LOC: MED 03:04
DX: S11.81XA Laceration without foreign body of other specified part of neck, initial encounter (principal); I12.9 Hypertensive chronic kidney disease with stage 1 through stage 4 chronic kidney disease, or unspecified chronic kidney disease; J45.909 Unspecified asthma, uncomplicated; Z79.899 Other long term (current) drug therapy; Z79.82 Long term (current) use of aspirin; Y82.8 Other medical devices associated with adverse incidents; Y93.89 Activity, other specified; Y92.89 Other specified places as the place of occurrence of the external cause; Y99.8 Other external cause status
CPT/HCPCS: 12001; 99282; J2001

== ENCOUNTER 2022-09-19 19:41 | Emergency (ER) | payer BC, OTHER ==
[~2022-09-19] VITALS: Ht 162.6 cm; Wt 84.8 kg
[~2022-09-19 19:41] MED LIST changes: -CETI-120 PO; +CETI10TA81 PO; +CLON-1170 PO; -CLON0.2T43 PO; -LABE300T5 PO; +[UNRECOGNIZED DRUG - CODE] PO
[2022-09-19 20:35] VITALS: BP 194/110
--- NOTE | 2022-09-19 20:42 | NUR ---
TO BED FOLLOWING TRIAGE
[2022-09-19] MEDS ORDERED: CLONIDINE HYDROCHLORIDE 0.1 MG TAB PO ONE (20:55)
[2022-09-19] MEDS ORDERED: PHENYLEPHRINE 1% 15 ML BTL NS STA (20:55)
--- NOTE | 2022-09-19 21:09 | NUR ---
Pt coming frm home ambulatory with steady gait. Pt c/o active cassandra bleeding since 6pm. Pt has no other c/o. Pt has BP of 236/112 er physician notified. All other vitals stable. Pt is A&Ox4. Skin intact. Denies n/v. No chest pain and no sob. Pupils PERRLA. NKA. Has hx of HTN and Renal disease. Bed in lowest position.
--- NOTE | 2022-09-19 21:17 | NUR ---
case technician at bedside.
--- NOTE | 2022-09-19 21:20 | NUR ---
Ultrasound at bedside.
--- NOTE | 2022-09-19 21:25 | NUR ---
Computer Aided Design Designer unsuccessful to draw blood at this time.
--- NOTE | 2022-09-19 21:50 | NUR ---
Lab drawn and sent to lab.
[2022-09-19] MEDS ORDERED: LABETALOL 20 MG/4 ML VIAL IVP ONE (21:55)
[2022-09-19 22:03] LABS: BASOPHILS # (AUTO) 0.1 K/uL (0.00-0.22); BASOPHILS % (AUTO) 0.7 % (0.0-2.0); EOSINOPHILS # (AUTO) 0.4 K/uL (0-0.4); EOSINOPHILS % (AUTO) 3.5 % (0.0-4.0); HEMATOCRIT 31.5 % (36-48); HEMOGLOBIN 10.5 g/dL (12.0-16.0); LYMPHOCYTES % (AUTO) 9.6 % (20.5-51.1); MEAN CORPUSCULAR HEMOGLOBIN 34 pg (27-31); MEAN CORPUSCULAR HGB CONC 34 g/dL (33-37); MONOCYTES # (AUTO) 0.5 K/uL (0.8-1.0); MONOCYTES % (AUTO) 5.1 % (1.7-9.3); NEUTROPHILS # (AUTO) 8.3 K/uL (1.8-7.7); NEUTROPHILS % (AUTO) 81.1 % (42.2-75.2); PLATELET COUNT (AUTO) 186 K/uL (140-450); RED BLOOD CELL COUNT(AUTO) 3.09 MIL/uL (4.20-5.40); RED CELL DISTRIBUTION WIDTH 16.3 % (11.6-13.7); WHITE BLOOD COUNT (AUTO) 10.2 K/uL (4.8-10.8)
--- NOTE | 2022-09-19 22:15 | NUR ---
#22g IV placed on right ac using ultrasound guided. 10cc flushed and no infiltration noted. Pt has no c/o.
[2022-09-19 22:17] LABS: PROTHROMBIN TIME 12.4 secs (10.8-13.4)
[2022-09-19 22:18] LABS: ALBUMIN 3.6 g/dL (3.4-5.0); CARBON DIOXIDE 28.5 mmol/L (21-32); POTASSIUM 4.5 mmol/L (3.5-5.1); TOTAL BILIRUBIN 1.3 mg/dL (0.0-1.0)
[2022-09-19 22:27] LABS: CREATININE 8.9 mg/dL (0.6-1.3)
[2022-09-19] MEDS ORDERED: ENALAPRILAT 2.5 MG/2 ML VIAL IVP ONE (23:25)
[2022-09-19] MEDS ORDERED: hydrALAZINE 20 MG/ML VIAL IVP ONE (23:25)
[2022-09-20 02:14] VITALS: BP 176/84
== END 2022-09-20 02:14 | disposition home or self-care (01) ==
LOC: MED 19:41
DX: R04.0 Epistaxis (principal); I10 Essential (primary) hypertension; N18.6 End stage renal disease; J45.909 Unspecified asthma, uncomplicated; Z99.2 Dependence on renal dialysis; Z79.899 Other long term (current) drug therapy
CPT/HCPCS: 36415; 80053; 85025; 85610; 85730; 93971; 96374; 96375; 99285; J0360; J3490; Q0092

== ENCOUNTER 2023-02-06 09:45 | Inpatient (IN) | payer BC, OTHER ==
[~2023-02-06] VITALS: Ht 162.6 cm; Wt 90.7 kg
[2023-02-06 10:05] VITALS: BP 161/97
--- NOTE | 2023-02-06 10:14 | NUR ---
AMBULATED TO BED 11 SLOW AND STEADY GAIT
[2023-02-06 12:43] LABS: BASOPHILS % (AUTO) 0.8 % (0.0-2.0); EOSINOPHILS # (AUTO) 0.2 K/uL (0-0.4); EOSINOPHILS % (AUTO) 2.7 % (0.0-4.0); HEMATOCRIT 32.2 % (36-48); HEMOGLOBIN 10.6 g/dL (12.0-16.0); LYMPHOCYTES # (AUTO) 0.5 K/uL (2.5-16.5); LYMPHOCYTES % (AUTO) 8.4 % (20.5-51.1); MEAN CORPUSCULAR HEMOGLOBIN 32 pg (27-31); MEAN CORPUSCULAR HGB CONC 33 g/dL (33-37); MEAN CORPUSCULAR VOLUME 98.3 fL (80-94); MONOCYTES # (AUTO) 0.5 K/uL (0.8-1.0); MONOCYTES % (AUTO) 9.3 % (1.7-9.3); NEUTROPHILS # (AUTO) 4.5 K/uL (1.8-7.7); NEUTROPHILS % (AUTO) 78.8 % (42.2-75.2); PLATELET COUNT (AUTO) 153 K/uL (140-450); RED BLOOD CELL COUNT(AUTO) 3.27 MIL/uL (4.20-5.40); RED CELL DISTRIBUTION WIDTH 16.3 % (11.6-13.7); WHITE BLOOD COUNT (AUTO) 5.7 K/uL (4.8-10.8)
[2023-02-06 12:56] LABS: ALBUMIN 3.4 g/dL (3.4-5.0); ANION GAP 22.6 (8-16); CARBON DIOXIDE 22.5 mmol/L (21-32); POTASSIUM 5.1 mmol/L (3.5-5.1); TOTAL BILIRUBIN 1.1 mg/dL (0.0-1.0)
[2023-02-06 12:58] LABS: CREATININE 11.7 mg/dL (0.6-1.3)
[2023-02-06] MEDS ORDERED: ASPIRIN 81 MG TAB.CHEW PO ONE (13:20)
--- NOTE | 2023-02-06 20:38 | NUR ---
Meal provided to pt according to diet.
--- NOTE | 2023-02-06 21:20 | NUR ---
Patient will be admitted to care of MD Snyder. Admited to TELE. Will go to room 123B. Belongings list completed. Report to ANNE-MARIE Lopez.
[2023-02-06 21:35] VITALS: BP 183/94
--- NOTE | 2023-02-06 21:35 | NUR ---
RECEIVED PT FROM ER. PATIENT IS AWAKE, ALERT AND ORIENTED X 4. ABLE TO AMBULATE TO THE BED WITH STEADY GAIT. ORIENTED TO MST SET UP, UPDATED WHITEBOARD. BED IN THE LOWEST AND LOCKED POSITION FOR SAFETY, CALL LIGHT GIVEN TO PT, INSTRUCTIONS ON USE PROVIDED, ENCOURAGED TO CALL IF ASSISTANCE IS NEEDED, PT VERBALLY ACKNOWLEDGED. .
[2023-02-06] MEDS ORDERED: MORPHINE SULFATE 2 MG/ML SYR IVP PRN (21:50)
[2023-02-06] MEDS ORDERED: POTASSIUM CHLORIDE 10 MEQ TABER PO PRN (21:55)
[2023-02-06] MEDS ORDERED: ACETAMINOPHEN 325 MG TAB PO PRN (21:55)
[2023-02-06] MEDS ORDERED: ZOLPIDEM 5 MG TAB PO PRN (21:55)
[2023-02-06] MEDS ORDERED: DOCUSATE SODIUM 100 MG GELCAP PO PRN (21:55)
[2023-02-06] MEDS ORDERED: guaiFENesin DM 200/20 MG-10 ML 10 ML UDC PO PRN (21:55)
[2023-02-06] MEDS: METOPROLOL 25 MG TAB PO SCH (22:18)
[2023-02-06] MEDS: FUROSEMIDE 40 MG/4 ML VIAL IVP SCH (22:19)
[2023-02-06 22:43] LABS: CHOL/HDL RATIO 1.8 (1-4.5); FREE T4 (FREE THYROXINE) 1.19 ng/dL (0.76-1.46); THYROID STIMULATING HORMONE 3.14 uIU/mL (0.34-3.74)
[2023-02-06 22:49] LABS: PHOSPHORUS 9.6 mg/dL (2.5-4.9)
[2023-02-06] MEDS ORDERED: CALCIUM ACETATE 667 MG TAB PO SCH (22:55)
--- NOTE | 2023-02-06 22:55 | NUR ---
PHOSPHORUS-9.6, DR. GOULD MADE AWARE. NEW ORDER GIVEN AND WILL BE CARRIED OUT.
[2023-02-06] MEDS: hydrALAZINE 20 MG/ML VIAL IVP PRN (23:19)
[2023-02-06] MEDS: ONDANSETRON 4 MG/2 ML VIAL IM/IVP PRN (23:21)
[2023-02-07] VITALS: BP 159/90
[2023-02-07 03:30] LABS: APPEARANCE,URINE CLEAR (CLEAR); BILIRUBIN,URINE NEGATIVE (NEGATIVE); BLOOD, URINE 1+ (NEGATIVE); COLOR,URINE YELLOW (YELLOW); LEUKOCYTE ESTERASE ,URINE 1+ (NEGATIVE); NITRITE, URINE NEGATIVE (NEGATIVE); UGLUCOSE NEGATIVE (NEGATIVE)
[2023-02-07] MEDS: HYDROcodone/APAP 7.5/325 MG 1 TAB PO PRN ×2 (03:40→21:26)
[2023-02-07 03:43] LABS: BARBITURATE, URINE NEGATIVE ng/ml (NEG <=200); BENZODIAZEPINE, URINE NEGATIVE ng/mL (NEG <=200); CANNABINOID, URINE NEGATIVE ng/mL (NEG <=50); COCAINE, URINE NEGATIVE ng/mL (NEG <=300); PHENCYCLIDINE SCREEN,URINE NEGATIVE ng/mL (NEG <=25)
[2023-02-07 03:44] LABS: OPIATE, URINE POSITIVE ng/mL (NEG <=2000)
[2023-02-07 03:51] LABS: RBC,URINE 0-5 /HPF (0-5)
[2023-02-07 04:00] VITALS: BP 154/94
[2023-02-07 05:35] LABS: BASOPHILS % (AUTO) 0.7 % (0.0-2.0); EOSINOPHILS # (AUTO) 0.1 K/uL (0-0.4); EOSINOPHILS % (AUTO) 1.8 % (0.0-4.0); HEMATOCRIT 31.7 % (36-48); HEMOGLOBIN 10.5 g/dL (12.0-16.0); LYMPHOCYTES # (AUTO) 0.4 K/uL (2.5-16.5); MEAN CORPUSCULAR HEMOGLOBIN 32 pg (27-31); MEAN CORPUSCULAR HGB CONC 33 g/dL (33-37); MEAN CORPUSCULAR VOLUME 97.4 fL (80-94); MONOCYTES # (AUTO) 0.5 K/uL (0.8-1.0); MONOCYTES % (AUTO) 8.1 % (1.7-9.3); NEUTROPHILS # (AUTO) 5.4 K/uL (1.8-7.7); NEUTROPHILS % (AUTO) 83.4 % (42.2-75.2); PLATELET COUNT (AUTO) 181 K/uL (140-450); RED BLOOD CELL COUNT(AUTO) 3.26 MIL/uL (4.20-5.40); RED CELL DISTRIBUTION WIDTH 16.3 % (11.6-13.7); WHITE BLOOD COUNT (AUTO) 6.5 K/uL (4.8-10.8)
--- NOTE | 2023-02-07 06:25 | NUR ---
PATIENT IS ASLEEP. NO DISTRESS NOTED. ALL NEEDS ATTENDED TO. SAFETY PRECAUTIONS IN PLACE, CALL LIGHT IN REACH.
[2023-02-07 06:37] LABS: ANION GAP 27.8 (8-16); CARBON DIOXIDE 19.9 mmol/L (21-32); POTASSIUM 5.7 mmol/L (3.5-5.1)
[2023-02-07 06:47] LABS: CREATININE 12.6 mg/dL (0.6-1.3)
--- NOTE | 2023-02-07 06:51 | NUR ---
INFORMED DR. GOULD OF BUN-107 CREA-12.6, NO NEW ORDER.
--- NOTE | 2023-02-07 07:40 | NUR ---
ASSUMED CARE OF PATIENT, NO REPORT RECEIVED FROM NIGHTSHIFT NURSE. PT NOT IN DISTRESS, NO COMPLAINTS OF PAIN NOTED AT THIS TIME, 2+ PITTING EDEMA NOTED ON BILATERAL LOWER EXTREMITIES.
--- NOTE | 2023-02-07 08:40 | NUR ---
VANDANA BRAY NOTIFIED ME OF PT'S BP 183/102, HR 78. EDUCATED PT ON USE OF PRN HYDRALAZINE FOR SBP>160 A MEANS OF DECREASING BP. PT REFUSED SHE ALREADY HAS MULTIPLE ORAL BP MEDICATIONS AND STATED IF HER BP DROPS TOO QUICKLY, SHE GET SEVERELY NAUSEOUS. COMPROMISED TO RECHECK BP LATER TO SEE IF PRN WILL STILL BE NECESSARY.
[2023-02-07] MEDS: FUROSEMIDE 40 MG/4 ML VIAL IVP SCH ×2 (08:45→17:44)
[2023-02-07] MEDS: METOPROLOL 25 MG TAB PO SCH ×2 (08:47→21:24)
[2023-02-07] MEDS: ASPIRIN 325 MG TAB PO SCH (08:48)
[2023-02-07] MEDS: PANTOPRAZOLE 40 MG TABEC PO SCH (08:48)
--- NOTE | 2023-02-07 08:56 | NUR ---
PT REFUSED NIFEDIPINE, STATED SHE HAS NEGATIVE REACTIONS (I.E ANXIETY, NAUSEA) AND HER DOCTOR TOOK HER OFF IT. NOTIFIED DR. GOULD OF POSSIBLE ALLERGY.
[2023-02-07 09:00] VITALS: BP 169/92
[2023-02-07] MEDS ORDERED: NIFEdipine 60 MG TABER PO SCH (09:00)
[2023-02-07] MEDS: CLONIDINE HYDROCHLORIDE 0.1 MG TAB PO SCH (09:25)
--- NOTE | 2023-02-07 09:25 | NUR ---
ENDORSED PT TO DAYSKYFT NURSE PAWAN FOR CONTINUITY OF CARE.
[2023-02-07] MEDS ORDERED: CALCIUM GLUC 1 GM/50 mL NS BAG 50 ML IV SCH (09:30)
[2023-02-07] MEDS: hydrALAZINE 20 MG/ML VIAL IVP PRN (10:51)
[2023-02-07] MEDS ORDERED: hydrALAZINE 20 MG/ML VIAL IVP SCH (11:40)
[2023-02-07] MEDS ORDERED: METOCLOPRAMIDE 10 MG/2 ML INJ VIAL IVP SCH (11:45)
[2023-02-07] MEDS: ONDANSETRON 4 MG/2 ML VIAL IM/IVP PRN (11:47)
[2023-02-07 12:00] VITALS: BP 173/93
[2023-02-07 16:00] VITALS: BP 182/94
[2023-02-07] MEDS: SEVELAMER CARBONATE 800 MG TAB PO SCH (17:43)
[2023-02-07] MEDS ORDERED: ONDANSETRON 4 MG/2 ML VIAL IVP PRN (18:40)
--- NOTE | 2023-02-07 19:20 | NUR ---
RECEIVED PT IN BED AWAKE,ALERT AND ORIENTED, FAMILY MEMBER AT THE BEDSIDE. ONGOING DIALYSIS ORDERED. DENIES PAIN AT THIS TIME. NO ACUTE RESPIRATORY DISTRESS NOTED. SKIN WARM AND DRY TO TOUCH. SAFETY PRECAUTIONS IN PLACE, CALL LIGHT IN REACH.
[2023-02-07 20:00] VITALS: BP 167/86
--- NOTE | 2023-02-07 21:22 | NUR ---
HEMODIALYSIS DONE-4L OUT PER HD RN. BP-193/83 HR-77. DUE MEDICATIONS TO BE GIVEN.
[2023-02-08] VITALS: BP 169/77
[2023-02-08] MEDS: hydrALAZINE 20 MG/ML VIAL IVP PRN ×2 (00:16→14:12)
--- NOTE | 2023-02-08 01:20 | NUR ---
ROUNDING DONE PT ASLEEP. BREATHING EVEN AND UNLABORED. CALL LIGHT WITHIN REACH.
[2023-02-08 04:00] VITALS: BP 129/75
[2023-02-08 06:32] LABS: BASOPHILS % (AUTO) 0.6 % (0.0-2.0); EOSINOPHILS # (AUTO) 0.1 K/uL (0-0.4); EOSINOPHILS % (AUTO) 1.3 % (0.0-4.0); HEMATOCRIT 31.3 % (36-48); HEMOGLOBIN 10.4 g/dL (12.0-16.0); LYMPHOCYTES # (AUTO) 0.4 K/uL (2.5-16.5); LYMPHOCYTES % (AUTO) 5.1 % (20.5-51.1); MEAN CORPUSCULAR HEMOGLOBIN 32 pg (27-31); MEAN CORPUSCULAR HGB CONC 33 g/dL (33-37); MEAN CORPUSCULAR VOLUME 96.8 fL (80-94); MONOCYTES # (AUTO) 0.7 K/uL (0.8-1.0); MONOCYTES % (AUTO) 9.3 % (1.7-9.3); NEUTROPHILS # (AUTO) 6.2 K/uL (1.8-7.7); NEUTROPHILS % (AUTO) 83.7 % (42.2-75.2); PLATELET COUNT (AUTO) 187 K/uL (140-450); RED BLOOD CELL COUNT(AUTO) 3.23 MIL/uL (4.20-5.40); WHITE BLOOD COUNT (AUTO) 7.4 K/uL (4.8-10.8)
[2023-02-08 06:38] LABS: ANION GAP 17.7 (8-16); CARBON DIOXIDE 28.9 mmol/L (21-32); POTASSIUM 3.6 mmol/L (3.5-5.1)
[2023-02-08 06:40] LABS: CREATININE 8.6 mg/dL (0.6-1.3)
[2023-02-08] MEDS: HYDROcodone/APAP 7.5/325 MG 1 TAB PO PRN (06:50)
[2023-02-08 08:00] VITALS: BP 171/83
--- NOTE | 2023-02-08 08:00 | NUR ---
NURSE REPORT REPORT OBTAINED FROM THE NIGHT NURSE HÉCTOR AND THIS NURSE ASSUMED CARE OF PATIENT. VS TAKEN. BP 171/83. PATIENT WILL BE GIVEN CATAPRESS AND LOPRESSOR THIS AM. TELE WITH .
[2023-02-08] MEDS: CLONIDINE HYDROCHLORIDE 0.1 MG TAB PO SCH (08:58)
[2023-02-08] MEDS: SEVELAMER CARBONATE 800 MG TAB PO SCH ×3 (08:58→16:45)
[2023-02-08] MEDS: ASPIRIN 325 MG TAB PO SCH (09:00)
[2023-02-08] MEDS: METOPROLOL 25 MG TAB PO SCH (09:00)
[2023-02-08] MEDS: PANTOPRAZOLE 40 MG TABEC PO SCH (09:00)
[2023-02-08] MEDS: FUROSEMIDE 40 MG/4 ML VIAL IVP SCH (09:01)
--- NOTE | 2023-02-08 09:20 | NUR ---
PATIENT HAS BEEN SCREENED AND CATEGORIZED MODERATE NUTRITION RISK. PATIENT WILL BE SEEN WITHIN 3-5 DAYS OF ADMISSION. 02/06/23-02/11/[address]
[2023-02-08] MEDS ORDERED: SEVE800T6 PO (11:48)
[2023-02-08] MEDS ORDERED: HYDR-3233 PO (11:48)
[2023-02-08] MEDS ORDERED: METO25TA PO (11:48)
[2023-02-08 12:00] VITALS: BP 182/88
--- NOTE | 2023-02-08 12:34 | NUR ---
NURSE NOTES BP 182/88. GIVEN APRESOLINE 10 MG PO SCHEDULED. TELE WITH SR- HR 79.
[2023-02-08] MEDS ORDERED: hydrALAZINE 10 MG TAB PO SCH (13:00)
[2023-02-08 15:00] VITALS: BP 176/99
[2023-02-08] MEDS ORDERED: hydrALAZINE 20 MG/ML VIAL IVP PRN (15:00)
[2023-02-08] MEDS ORDERED: LABETALOL 20 MG/4 ML VIAL IVP PRN (15:00)
--- NOTE | 2023-02-08 15:20 | NUR ---
NURSE NOTES BP 188/68; GIVEN LABETALOL 20 MG IVP. WILL RECHECK BP IN 30 MIN. NO C/O PAIN OR CHEST PAIN.
[2023-02-08 15:59] VITALS: BP 179/89
--- NOTE | 2023-02-08 16:30 | NUR ---
NURSE DISCHARGE NOTE PATIENT BP 179/89 AND HAD LABETALOL 20 MG IVP. PATIENT STATED THAT AFTER SHE DOES DIALYSIS THE BP DECREASES. DR BARRON STATED OK FOR PATIENT TO GO HOME, SINCE SHE WILL DO HD AT HOME. D/C TO HOME. D/C INSTRUCTIONS GIVEN. PATIENT VERBALIZED UNDERSTANDINGS OF INSTRUCTIONS. SIGNED FORM. SL REMOVED FROM R THUMB WITH CATHETER INTACT. DRSG APPLIED. NO BLEEDING. AT BEDSIDE AND TAKING PATIENT HOME. ELI PAVON RN
[2023-02-08] MEDS ORDERED: hydrALAZINE 25 MG TAB PO SCH (17:00)
[2023-02-08] MEDS ORDERED: ISOSORBIDE DINITRATE 10 MG TAB PO SCH (17:00)
[2023-02-08] MEDS ORDERED: carvediloL 12.5 MG TAB PO SCH (21:00)
[2023-02-09 07:07] LABS: T4 (THYROXINE) 8.4 ug/dL (4.5-12.0)
== END 2023-02-08 16:25 | disposition home or self-care (01) | DRG 280 ==
LOC: MED 09:45 → MTU 15:12
PROVIDERS: ADMIT Family Medicine; ATTEND Family Medicine
PROC: 5A1D70Z Performance of Urinary Filtration, Intermittent, Less than 6 Hours Per Day (ICD-10-PCS; principal; 2023-02-07)
DX: I13.2 Hypertensive heart and chronic kidney disease with heart failure and with stage 5 chronic kidney disease, or end stage renal disease (principal); I21.A1 Myocardial infarction type 2; I50.21 Acute systolic (congestive) heart failure; N18.6 End stage renal disease; M54.9 Dorsalgia, unspecified; Z20.822 Contact with and (suspected) exposure to COVID-19; I42.8 Other cardiomyopathies; J45.909 Unspecified asthma, uncomplicated; E83.39 Other disorders of phosphorus metabolism; D53.9 Nutritional anemia, unspecified; E87.5 Hyperkalemia; I36.1 Nonrheumatic tricuspid (valve) insufficiency; Z79.82 Long term (current) use of aspirin; Z79.899 Other long term (current) drug therapy; Z82.3 Family history of stroke
CPT/HCPCS: 36415; 71045; 80048; 80053; 80305; 81001; 82150; 83036; 83690; 83735; 83880; 84100; 84436; 84439; 84443; 84479; 84484; 85025; 85610; 85730; 87081; 87086; 93970; 99285; J0360; J0610; J1644; J1940; J2270; J2405; J2765; J3490; Q0092

== ENCOUNTER 2023-06-17 10:13 | Emergency (ER) | payer OTHER ==
[~2023-06-17] VITALS: Ht 162.6 cm; Wt 77.6 kg
[~2023-06-17 10:13] MED LIST changes: -ALBU0.0912 IH; -ATOR20TA PO; -CETI10TA81 PO; -FLO44 IH; +HYDR-3233 PO; +METO25TA PO; +SEVE800T6 PO
[2023-06-17 10:20] VITALS: BP 167/97; PULSE 87; RESP 20; TEMP 98; O2SAT 100
[2023-06-17] MEDS ORDERED: HYDROcodone/APAP 5/325 MG 1 TAB TAB PO ONE (10:45)
[2023-06-17] MEDS ORDERED: ACET-8905 PO (12:29)
[2023-06-17 12:52] VITALS: BP 164/96; PULSE 82; RESP 15; TEMP 98.1; O2SAT 98
== END 2023-06-17 12:52 | disposition home or self-care (01) ==
LOC: MED 10:13
DX: M25.421 Effusion, right elbow (principal); I10 Essential (primary) hypertension; Z79.899 Other long term (current) drug therapy
CPT/HCPCS: 73080; 93971; 99284; Q0092

== ENCOUNTER 2024-01-18 13:16 | Inpatient (IN) | payer OTHER, BC ==
[~2024-01-18] VITALS: Ht 162.6 cm; Wt 85.7 kg
[~2024-01-18 13:16] MED LIST changes: +ACET-8905 PO
[2024-01-18 13:50] VITALS: BP 163/103; PULSE 82; RESP 22; TEMP 100.5; O2SAT 95
[2024-01-18] MEDS: ACETAMINOPHEN EXTRA STRENGTH 500 MG TAB PO ONE (15:07)
[2024-01-18 15:17] LABS: FLU A ANTIGEN negative (NEGATIVE); FLU B ANTIGEN NEGATIVE (NEGATIVE)
[2024-01-18 15:30] LABS: BASOPHILS % (AUTO) 0.7 % (0.0-2.0); EOSINOPHILS # (AUTO) 0.1 K/uL (0-0.4); EOSINOPHILS % (AUTO) 1.5 % (0.0-4.0); HEMOGLOBIN 11.2 g/dL (12.0-16.0); LYMPHOCYTES # (AUTO) 0.6 K/uL (2.5-16.5); LYMPHOCYTES % (AUTO) 9.6 % (20.5-51.1); MEAN CORPUSCULAR HEMOGLOBIN 35 pg (27-31); MEAN CORPUSCULAR HGB CONC 34 g/dL (33-37); MEAN CORPUSCULAR VOLUME 103.6 fL (80-94); MONOCYTES # (AUTO) 0.4 K/uL (0.8-1.0); MONOCYTES % (AUTO) 7.2 % (1.7-9.3); NEUTROPHILS # (AUTO) 4.7 K/uL (1.8-7.7); PLATELET COUNT (AUTO) 173 K/uL (140-450); RED BLOOD CELL COUNT(AUTO) 3.19 MIL/uL (4.20-5.40); RED CELL DISTRIBUTION WIDTH 16.1 % (11.6-13.7); WHITE BLOOD COUNT (AUTO) 5.9 K/uL (4.8-10.8)
[2024-01-18 15:41] LABS: ANION GAP 18.2 (8-16); CALCIUM 8.4 mg/dL (8.5-10.1); CARBON DIOXIDE 25.5 mmol/L (21-32); POTASSIUM 4.7 mmol/L (3.5-5.1)
[2024-01-18 15:45] LABS: CREATININE 8.2 mg/dL (0.6-1.3)
[2024-01-18] MEDS ORDERED: cefTRIAXone 1,000 MG VIAL ONE (18:01)
[2024-01-18] MEDS ORDERED: AZITHROMYCIN 500 MG INJ VIAL IV ONE (18:02)
[2024-01-18] MEDS: AZITHROMYCIN 500 MG in DEXTROSE 5% 250 ML IV ONE (18:10)
[2024-01-18] MEDS ORDERED: CLON-529 TP (18:21)
[2024-01-18] MEDS ORDERED: GABA-636 PO (18:22)
[2024-01-18] MEDS: ALBUTEROL 0.083% 2.5 MG/3 ML NEBU INH SCH (19:00)
[2024-01-18] MEDS: IPRATROPIUM 0.02% 0.5 MG/2.5 ML NEBU INH SCH (19:00)
[2024-01-18 19:20] VITALS: O2SAT 94
[2024-01-18] MEDS: ONDANSETRON 4 MG/2 ML VIAL IVP ONE (20:06)
[2024-01-18 23:41] VITALS: PULSE 90
[2024-01-18 23:58] VITALS: PULSE 88
[2024-01-19] VITALS (13 sets, daily range): BP systolic 119–182; BP diastolic 80–116; PULSE 80–100; RESP 16–20; TEMP 98–99.4; O2SAT 93–100
[2024-01-19] MEDS: hydrALAZINE 20 MG/ML VIAL ONE (03:22)
[2024-01-19] MEDS: ACETAMINOPHEN 325 MG TAB ONE (03:42)
[2024-01-19 04:14] LABS: BASOPHILS % (AUTO) 0.5 % (0.0-2.0); EOSINOPHILS # (AUTO) 0.1 K/uL (0-0.4); EOSINOPHILS % (AUTO) 1.6 % (0.0-4.0); HEMATOCRIT 33.8 % (36-48); HEMOGLOBIN 11.4 g/dL (12.0-16.0); LYMPHOCYTES # (AUTO) 0.5 K/uL (2.5-16.5); LYMPHOCYTES % (AUTO) 10.6 % (20.5-51.1); MEAN CORPUSCULAR HEMOGLOBIN 35 pg (27-31); MEAN CORPUSCULAR HGB CONC 34 g/dL (33-37); MEAN CORPUSCULAR VOLUME 103.8 fL (80-94); MONOCYTES # (AUTO) 0.5 K/uL (0.8-1.0); MONOCYTES % (AUTO) 8.9 % (1.7-9.3); NEUTROPHILS % (AUTO) 78.4 % (42.2-75.2); PLATELET COUNT (AUTO) 155 K/uL (140-450); RED BLOOD CELL COUNT(AUTO) 3.25 MIL/uL (4.20-5.40); RED CELL DISTRIBUTION WIDTH 16.3 % (11.6-13.7); WHITE BLOOD COUNT (AUTO) 5.1 K/uL (4.8-10.8)
[2024-01-19 04:41] LABS: ANION GAP 21.7 (8-16); CALCIUM 8.4 mg/dL (8.5-10.1); CARBON DIOXIDE 23.4 mmol/L (21-32); POTASSIUM 5.1 mmol/L (3.5-5.1)
[2024-01-19 04:42] LABS: CREATININE 9.1 mg/dL (0.6-1.3); TOTAL BILIRUBIN 0.7 mg/dL (0.0-1.0)
[2024-01-19 04:44] LABS: ALBUMIN 3.2 g/dL (3.4-5.0)
[2024-01-19] MEDS: hydrALAZINE 20 MG/ML VIAL IVP PRN ×2 (09:44→18:22)
[2024-01-19] MEDS: ECOTRIN 81 MG TABEC PO SCH (12:12)
[2024-01-19] MEDS: hydrALAZINE 25 MG TAB PO SCH (12:13)
[2024-01-19] MEDS: ISOSORBIDE DINITRATE 20 MG TAB PO SCH (12:13)
[2024-01-19] MEDS: carvediloL 12.5 MG TAB PO SCH (12:13)
[2024-01-19] MEDS ORDERED: hydrALAZINE 10 MG TAB PO SCH (13:00)
[2024-01-19] MEDS: ACETAMINOPHEN 650 MG/20.3 ML UDC PO PRN (14:34)
[2024-01-19] MEDS ORDERED: IPRATROPIUM 0.02% 0.5 MG/2.5 ML NEBU INH PRN (18:10)
[2024-01-19] MEDS ORDERED: ALBUTEROL 0.083% 2.5 MG/3 ML NEBU INH PRN (18:10)
[2024-01-19] MEDS: HYDROcodone/APAP 5/325 MG 1 TAB TAB PO PRN (20:24)
[2024-01-19] MEDS ORDERED: METOPROLOL 25 MG TAB PO SCH (21:00)
[2024-01-19] MEDS: AZITHROMYCIN 500 MG in DEXTROSE 5% 250 ML IV SCH (22:19)
[2024-01-20] VITALS (7 sets, daily range): BP systolic 160–196; BP diastolic 66–101; PULSE 78–94; RESP 18; TEMP 97.6–99.2; O2SAT 96–99
[2024-01-20] MEDS: PANTOPRAZOLE 40 MG INJ VIAL IVP SCH (08:20)
[2024-01-20] MEDS: GABAPENTIN 100 MG CAP PO SCH (08:20)
[2024-01-20] MEDS ORDERED: CLONIDINE HYDROCHLORIDE 0.1 MG TAB PO SCH (09:00)
[2024-01-20] MEDS: cloNIDine-TTS3 0.3 MG/24 HR 1 EA PATCH TD SCH (11:09)
[2024-01-20] MEDS ORDERED: VANCOMYCIN PER PHARMACY MC PRN (18:50)
[2024-01-20] MEDS: hydrALAZINE 25 MG TAB PO SCH (20:28)
[2024-01-20] MEDS: carvediloL 12.5 MG TAB PO SCH (20:29)
[2024-01-20] MEDS: VANCOMYCIN 1,000 MG in DEXTROSE 5% 250 ML IV SCH (21:04)
[2024-01-21] VITALS (8 sets, daily range): BP systolic 149–183; BP diastolic 76–93; PULSE 78–110; RESP 16–18; TEMP 97.5–99.2; O2SAT 93–99
[2024-01-21] MEDS: GAUZE TP SCH (01:00)
[2024-01-21] MEDS: ONDANSETRON 4 MG/2 ML VIAL IVP PRN (02:49)
[2024-01-21] MEDS: MORPHINE SULFATE 2 MG/ML SYR IVP PRN (20:58)
[2024-01-22] VITALS (8 sets, daily range): BP systolic 156–164; BP diastolic 80–85; PULSE 76–95; RESP 16–18; TEMP 98–98.4; O2SAT 93–100
[2024-01-22] MEDS: VANCOMYCIN 1,000 MG in DEXTROSE 5% 250 ML IV SCH (10:33)
[2024-01-23 04:00] VITALS: BP 184/105; PULSE 80; RESP 16; TEMP 98.5; O2SAT 95
[2024-01-23] MEDS: LABETALOL 20 MG/4 ML VIAL IVP PRN (05:27)
[2024-01-23 06:15] VITALS: BP 148/76; PULSE 78; RESP 16; O2SAT 95
[2024-01-23 07:47] VITALS: O2SAT 94
[2024-01-23 08:00] VITALS: PULSE 77; RESP 17; RESP 18; TEMP 96.8; O2SAT 96
[2024-01-23 11:02] LABS: BASOPHILS % (AUTO) 1.1 % (0.0-2.0); EOSINOPHILS # (AUTO) 0.2 K/uL (0-0.4); EOSINOPHILS % (AUTO) 3.9 % (0.0-4.0); HEMATOCRIT 31.1 % (36-48); HEMOGLOBIN 10.6 g/dL (12.0-16.0); LYMPHOCYTES # (AUTO) 0.7 K/uL (2.5-16.5); MEAN CORPUSCULAR HEMOGLOBIN 35 pg (27-31); MEAN CORPUSCULAR HGB CONC 34 g/dL (33-37); MEAN CORPUSCULAR VOLUME 103.3 fL (80-94); MONOCYTES # (AUTO) 0.2 K/uL (0.8-1.0); MONOCYTES % (AUTO) 5.6 % (1.7-9.3); NEUTROPHILS # (AUTO) 3.1 K/uL (1.8-7.7); NEUTROPHILS % (AUTO) 72.4 % (42.2-75.2); PLATELET COUNT (AUTO) 198 K/uL (140-450); RED BLOOD CELL COUNT(AUTO) 3.01 MIL/uL (4.20-5.40); RED CELL DISTRIBUTION WIDTH 15.8 % (11.6-13.7); WHITE BLOOD COUNT (AUTO) 4.3 K/uL (4.8-10.8)
[2024-01-23 11:21] LABS: ANION GAP 16.3 (8-16); CARBON DIOXIDE 27.4 mmol/L (21-32); POTASSIUM 3.7 mmol/L (3.5-5.1); TOTAL BILIRUBIN 0.5 mg/dL (0.0-1.0); TOTAL PROTEIN, SERUM 6.9 g/dL (6.4-8.2)
[2024-01-23 11:25] LABS: CREATININE 7.5 mg/dL (0.6-1.3)
[2024-01-23] MEDS ORDERED: HYDR-4420 PO (12:52)
[2024-01-23] MEDS ORDERED: ISOS20TA13 PO (12:52)
[2024-01-23] MEDS ORDERED: CARV12.52 PO (12:52)
[2024-01-23] MEDS ORDERED: SULF-58 PO (12:52)
[2024-01-23 13:29] VITALS: BP 147/80; PULSE 77; RESP 17; TEMP 96.8
[2024-01-23 14:56] VITALS: BP 161/96; PULSE 77; RESP 18; TEMP 96.8; O2SAT 96
== END 2024-01-23 14:57 | disposition home or self-care (01) | DRG 280 ==
LOC: MED 13:16 → MTU 18:46
PROVIDERS: ADMIT Family Medicine; ATTEND Family Medicine
PROC: 5A1D70Z Performance of Urinary Filtration, Intermittent, Less than 6 Hours Per Day (ICD-10-PCS; principal; 2024-01-19)
PROC: 5A1D70Z Performance of Urinary Filtration, Intermittent, Less than 6 Hours Per Day (ICD-10-PCS; 2024-01-20)
PROC: 5A1D70Z Performance of Urinary Filtration, Intermittent, Less than 6 Hours Per Day (ICD-10-PCS; 2024-01-22)
DX: I13.2 Hypertensive heart and chronic kidney disease with heart failure and with stage 5 chronic kidney disease, or end stage renal disease (principal); I21.A1 Myocardial infarction type 2; I50.23 Acute on chronic systolic (congestive) heart failure; N18.6 End stage renal disease; I16.1 Hypertensive emergency; Z20.822 Contact with and (suspected) exposure to COVID-19; I27.20 Pulmonary hypertension, unspecified; E78.5 Hyperlipidemia, unspecified; J06.9 Acute upper respiratory infection, unspecified; Z99.2 Dependence on renal dialysis; Z79.899 Other long term (current) drug therapy
CPT/HCPCS: 36415; 71045; 80048; 80053; 80202; 81025; 83605; 83880; 84484; 85025; 87040; 87081; 90935; 93005; 96365; 96367; 96375; 99285; C9113; J0360; J0456; J0696; J1644; J2270; J2405; J3370; J3490; J7060; J7613; J7644